=== PATIENT | male | born 1990 | race Caucasian/White ===

== ENCOUNTER 2016-05-21 10:22 | Emergency (ER) | payer BC ==
[2016-05-21 10:29] VITALS: BP 142/88; PULSE 100; RESP 20; TEMP 97.7
[2016-05-21] MEDS ORDERED: cefTRIAXone 1,000 MG VIAL (IM USE) IM STA (10:51)
--- NOTE | 2016-05-21 10:51 | ED ---
ENT HPI - General Chief complaint: Dental/Oral Stated complaint: swollen face/eye Time Seen by Provider: 05/21/16 10:32 Source: patient Mode of arrival: ambulatory Limitations: no limitations - History of Present Illness Initial comments: 25-year-old male onset of toothache for 3 days has a dental appointment on Monday called his tetanus was put on penicillin he notes increased swelling. It is the left upper front tooth. No fever no chills. Pain is not controlled with [id number]. Is nauseated threw up from the pain and taking Motrin. Has a history of asthma there's been control no other health problems. - Related Data Previous Rx's Medication Instructions Recorded Albuterol Inhaler [Ventolin Hfa 1 - 2 puff INHALATION Q4-6H PRN #1 01/14/16 Inhaler] inhaler Azithromycin [Zithromax Z-pack] 0 mg PO DIRECTED #6 tab 01/14/16 Ondansetron Odt [Zofran ODT] 4 mg PO Q8HR PRN #15 tab 01/14/16 predniSONE 60 mg PO DAILY 5 Days 01/14/16 Acetaminophen-Codeine 300-30mg 1 tab PO Q6H PRN #12 tablet 05/21/16 [Tylenol w/codeine #3] Allergies Allergy/AdvReac Type Severity Reaction Status Date / Time No Known Allergies Allergy Verified 05/21/16 10:28 Review of Systems ROS Statement: Those systems with pertinent positive or pertinent negative responses have been documented in the HPI. ROS Other: All systems not noted in ROS Statement are negative. Constitutional: Denies: fever, chills Eyes: Denies: eye discharge ENT: Denies: ear pain, throat pain Respiratory: Denies: cough Cardiovascular: Denies: chest pain Gastrointestinal: Reports: nausea, vomiting. Denies: diarrhea Genitourinary: Denies: frequency Skin: Denies: rash Neurological: Reports: headache Psychiatric: Denies: anxiety Hematological/Lymphatic: Denies: easy bleeding, easy bruising, swollen glands Past Medical History Past Medical History: Asthma Additional Past Medical History / Comment(s): Hypoglycemia, back pain History of Any Multi-Drug Resistant Organisms: None Reported Additional Past Surgical History / Comment(s): cyst removed from dorsum of left hand. Past Psychological History: No Psychological Hx Reported, Bipolar Smoking Status: Current every day smoker Past Alcohol Use History: Occasional Past Drug Use History: Marijuana General Exam Limitations: no limitations General appearance: alert, in no apparent distress Head exam: Present: atraumatic Eye exam: Present: PERRL, EOMI ENT exam: Present: normal oropharynx, mucous membranes moist, other (Marked decay left upper tooth #10, basically a stub it is blackened markedly tender, mild swelling of the face above the tooth.) Respiratory exam: Present: normal lung sounds bilaterally Cardiovascular Exam: Present: regular rate, normal heart sounds Neurological exam: Present: alert, CN II-XII intact Psychiatric exam: Present: normal affect Skin exam: Present: warm, dry Course Vital Signs 05/21/16 10:27 Temperature 97.7 F Pulse Rate 100 Respiratory 20 Rate Blood Pressure 142/88 O2 Sat by Pulse 98 Oximetry Medical Decision Making - Medical Decision Making Patient is given a dental block with 1% Xylocaine plain just above the tooth # 10 tolerated well. We'll send home to continue his Pen-Vee K Tylenol codeine and Zofran follow-up with his dentist Monday to continue his penicillin. Disposition Clinical Impression: Abscessed tooth Disposition: HOME SELF-CARE Condition: Good Instructions: Dental Abscess (ED) Prescriptions: Acetaminophen-Codeine 300-30mg [Tylenol w/codeine #3] 1 tab PO Q6H PRN #12 tablet PRN Reason: Pain Referrals: Jono Jalloh MD [Primary Care Provider] - 1-2 days Time of Disposition: 11:13
== END 2016-05-21 11:38 | disposition home or self-care (01) ==
LOC: EC 10:22
DX: K04.7 Periapical abscess without sinus (principal); F17.200 Nicotine dependence, unspecified, uncomplicated; Z79.899 Other long term (current) drug therapy; J45.909 Unspecified asthma, uncomplicated; Z79.52 Long term (current) use of systemic steroids
CPT/HCPCS: 99283; 96372; 64400; J0696

== ENCOUNTER → 2016-06-14 | Outpatient (CLI) | payer BC ==
--- NOTE | 2016-06-14 13:10 | XR ---
Sacrum and coccyx HISTORY: Pain, trauma 4 views of the sacrum and coccyx Bone mineralization is maintained. No fracture or subluxation. Probable vascular calcification within the pelvis. IMPRESSION: No significant abnormality is evident
== END ==
LOC: RADXRMAIN 09:37
PROVIDERS: ATTEND Internal Medicine
DX: M53.3 Sacrococcygeal disorders, not elsewhere classified (principal)
CPT/HCPCS: 72220

== ENCOUNTER 2016-11-10 16:14 | Emergency (ER) | payer BC ==
[2016-11-10] MEDS ORDERED: METOCLOPRAMIDE 5 MG/ML 2 ML VIAL IVP STA (16:38)
[2016-11-10] MEDS ORDERED: SODIUM CHLORIDE 0.9% 1,000 ML IV ONE (16:38)
[2016-11-10] MEDS ORDERED: KETOROLAC 30 MG/ML 1 ML VIAL IVP STA (16:38)
[2016-11-10] MEDS ORDERED: diphenhydrAMINE 50 MG/ML 1 ML VIAL IVP STA (16:38)
--- NOTE | 2016-11-10 16:44 | ED ---
General Adult HPI - General Chief complaint: Anxiety Stated complaint: Shaky/Headache Source: patient Mode of arrival: ambulatory Limitations: no limitations - History of Present Illness Initial comments: Patient is a 26-year-old male who presents for evaluation for headache, shakiness, nausea, vomiting. Past medical history as below. Patient has a known history of migraines and anxiety. He cites a lot of stressors at work. Does not take any home medications. For the last 24 hours he has had a migraine -like headache which is similar to his previous headaches. He also states that he feels very shaky and unsteady when he walks. Associated nausea and vomiting. States that he feels anxious. Denies any suicidal or homicidal ideation. He states that he smokes marijuana and has been smoking the same type of marijuana from the same distributor. No IV drug use. No fevers. He states that he has broken out on his face. Feels dry. Denies any changes in vision. No slurred speech. Denies any shortness of breath cough or chest pain. No real abdominal pain. A few episodes of diarrhea. No pain or burning with urination. Never had anything quite like this before in the past. No head trauma. Does not take any medications for depression or any other SSRI medications. No heavy alcohol abuse. - Related Data Previous Rx's Medication Instructions Recorded Albuterol Inhaler [Ventolin Hfa 1 - 2 puff INHALATION Q4-6H PRN #1 01/14/16 Inhaler] inhaler Azithromycin [Zithromax Z-pack] 0 mg PO DIRECTED #6 tab 01/14/16 Ondansetron Odt [Zofran ODT] 4 mg PO Q8HR PRN #15 tab 01/14/16 predniSONE 60 mg PO DAILY 5 Days 01/14/16 Acetaminophen-Codeine 300-30mg 1 tab PO Q6H PRN #12 tablet 05/21/16 [Tylenol w/codeine #3] Allergies Allergy/AdvReac Type Severity Reaction Status Date / Time No Known Allergies Allergy Verified 11/10/16 16:19 Review of Systems ROS Statement: Those systems with pertinent positive or pertinent negative responses have been documented in the HPI. ROS Other: All systems not noted in ROS Statement are negative. Past Medical History Past Medical History: Asthma Additional Past Medical History / Comment(s): Hypoglycemia, back pain History of Any Multi-Drug Resistant Organisms: None Reported Additional Past Surgical History / Comment(s): cyst removed from dorsum of left hand. Past Psychological History: No Psychological Hx Reported, Bipolar Smoking Status: Current every day smoker Past Alcohol Use History: Occasional Past Drug Use History: Marijuana General Exam Limitations: no limitations General appearance: alert, in no apparent distress, anxious, other (Sitting upright in the stretcher. Appears somewhat anxious.) Head exam: Present: atraumatic, normocephalic, normal inspection Eye exam: Present: normal appearance, PERRL, EOMI. Absent: scleral icterus, conjunctival injection, nystagmus, periorbital swelling ENT exam: Present: normal exam, mucous membranes moist, other (Xeroderma to his cheeks bilaterally.) Neck exam: Present: normal inspection, full ROM. Absent: tenderness, meningismus, lymphadenopathy Respiratory exam: Present: normal lung sounds bilaterally. Absent: respiratory distress, wheezes, rales, rhonchi, stridor Cardiovascular Exam: Present: regular rate, normal rhythm, normal heart sounds. Absent: systolic murmur, diastolic murmur, rubs, gallop, clicks GI/Abdominal exam: Present: soft, normal bowel sounds, other (Abdomen is soft. No specific points of tenderness. States that it is somewhat uncomfortable when I palpate the epigastric area.). Absent: distended, tenderness, guarding, rebound, rigid Extremities exam: Present: normal inspection, full ROM, normal capillary refill. Absent: tenderness, pedal edema, joint swelling, calf tenderness Back exam: Present: normal inspection Neurological exam: Present: alert, oriented X3, CN II-XII intact, other ( Cranial nerves II through XII grossly intact without focal neurological deficits. Alert and oriented 3. Answers questions appropriately. 5 out of 5 strength of the upper or lower extremities. Gait is at baseline. Questionable ataxia of the upper extremity is bilaterally. Uncertain to elucidate as patient is somewhat shaky. Otherwise no lateralizing neurological deficits.) Psychiatric exam: Present: normal affect, normal mood Skin exam: Present: warm, dry, intact, normal color. Absent: rash Course Vital Signs 11/10/16 16:16 Temperature 97.8 F Pulse Rate 85 Respiratory 20 Rate Blood Pressure 143/77 O2 Sat by Pulse 98 Oximetry Medical Decision Making - Medical Decision Making 1645: Patient is a 26-year-old male present for evaluation for migraine-like headache, nausea, vomiting, shakiness, anxiety. Never had symptoms like this before in the past. His migraine is similar to previous. Somewhat ataxic on exam. Difficult to elucidate though as the patient is somewhat shaky. Uncertain etiology at this time. He cites a lot of emotional stressors at home. Smokes marijuana regularly. We'll order a saline bolus, Reglan, Benadryl , Toradol for the migraine headache. We'll also order basic labs with magnesium , urinalysis, CT head with a questionable neurological findings. 175: Reevaluated the patient. His laboratory studies are within normal limits. CT head revealed no acute process. He states that he feels much more relaxed. Shakiness has resolved. His headache is nearly resolved. He is comfortable going home and following up with his primary care physician. Discussed specific signs and symptoms on when to return to the emergency department for further evaluation. He is comfortable with discharge home and will follow-up with his PCP tomorrow. - Lab Data Result diagrams: 11/10/16 16:50 11/10/16 16:50 Lab Results 11/10/16 11/10/16 11/10/16 Range/Units 16:50 16:50 17:16 WBC 4.8 (3.8-10.6) k/uL RBC 5.04 (4.30-5.90) m/uL Hgb 15.9 (13.0-17.5) gm/dL Hct 44.7 (39.0-53.0) % MCV 88.8 (80.0-100.0) fL MCH 31.7 (25.0-35.0) pg MCHC 35.6 (31.0-37.0) g/dL RDW 12.9 (11.5-15.5) % Plt Count 291 (150-450) k/uL Neutrophils % 63 % Lymphocytes % 24 % Monocytes % 7 % Eosinophils % 3 % Basophils % 1 % Neutrophils # 3.0 (1.3-7.7) k/uL Lymphocytes # 1.2 (1.0-4.8) k/uL Monocytes # 0.3 (0-1.0) k/uL Eosinophils # 0.2 (0-0.7) k/uL Basophils # 0.1 (0-0.2) k/uL Sodium 140 (137-145) mmol/L Potassium 4.4 (3.5-5.1) mmol/L Chloride 105 (98-107) mmol/L Carbon Dioxide 24 (22-30) mmol/L Anion Gap 11 mmol/L BUN 12 (9-20) mg/dL Creatinine 0.82 (0.66-1.25) mg/dL Est GFR (MDRD) Af Amer >60 (>60 ml/min/1.73 sqM) Est GFR (MDRD) Non-Af >60 (>60 ml/min/1.73 sqM) Glucose 101 H (74-99) mg/dL Calcium 9.7 (8.4-10.2) mg/dL Magnesium 2.0 (1.6-2.3) mg/dL Total Bilirubin 0.7 (0.2-1.3) mg/dL AST 23 (17-59) U/L ALT 36 (21-72) U/L Alkaline Phosphatase 50 (38-126) U/L Total Protein 7.4 (6.3-8.2) g/dL Albumin 4.8 (3.5-5.0) g/dL Urine Color Yellow Urine Appearance Clear (Clear) Urine pH 7.5 (5.0-8.0) Ur Specific [place] 1.009 (1.001-1.035) Urine Protein Negative (Negative) Urine Glucose (UA) Negative (Negative) Urine Ketones Negative (Negative) Urine Blood Negative (Negative) Urine Nitrite Negative (Negative) Urine Bilirubin Negative (Negative) Urine Urobilinogen <2.0 (<2.0) mg/dL Ur Leukocyte Esterase Negative (Negative) Disposition Clinical Impression: Migraine, Nausea & vomiting Disposition: HOME SELF-CARE Condition: Good Instructions: Migraine Headache (ED) Referrals: Jono Jalloh MD [Primary Care Provider] - 1-2 days
[2016-11-10 17:04] LABS: Basophils # (A) 0.1 k/uL (0-0.2); Basophils % (A) 1 %; CH 31.5; CHCM 35.6; Eosinophils # (A) 0.2 k/uL (0-0.7); Eosinophils % (A) 3 %; HCT 44.7 % (39.0-53.0); HDW 2.38; HGB 15.9 gm/dL (13.0-17.5); Luc % (Auto) 2; Lymphocytes # (A) 1.2 k/uL (1.0-4.8); Lymphocytes % (A) 24 %; MCH 31.7 pg (25.0-35.0); MCHC 35.6 g/dL (31.0-37.0); MCV 88.8 fL (80.0-100.0); Mean Platelet Volume 6.7; Monocytes # (A) 0.3 k/uL (0-1.0); Monocytes % (A) 7 %; Neutrophils % (A) 63 %; RBC 5.04 m/uL (4.30-5.90); RDW 12.9 % (11.5-15.5); WBC 4.8 k/uL (3.8-10.6); WBC (Perox) 5.05
[2016-11-10 17:12] LABS: ALT 36 U/L (21-72); AST 23 U/L (17-59); Alkaline Phosphatase 50 U/L (38-126); Anion Gap 11 mmol/L; Blood Urea Nitrogen 12 mg/dL (9-20); Calcium 9.7 mg/dL (8.4-10.2); Carbon Dioxide 24 mmol/L (22-30); Chloride 105 mmol/L (98-107); Glucose 101 mg/dL (74-99); Non-African American GFR(MDRD) >60 (>60 ml/min/1.73 sqM); Potassium 4.4 mmol/L (3.5-5.1); Sodium 140 mmol/L (137-145); Total Bilirubin 0.7 mg/dL (0.2-1.3); Total Protein 7.4 g/dL (6.3-8.2)
[2016-11-10 17:20] LABS: Appearance,Urine Clear (Clear); Bilirubin,Urine Negative (Negative); Glucose,Urine (UA) Negative (Negative); Ketones,Urine Negative (Negative); Leukocyte Esterase,Urine Negative (Negative); Nitrite,Urine Negative (Negative); PH, Urine 7.5 (5.0-8.0); Protein,Urine Negative (Negative); Specific Gravity,Urine 1.009 (1.001-1.035); UA Billing (MACRO vs. MICRO) CHEM; Urobilinogen,Urine <2.0 mg/dL (<2.0)
--- NOTE | 2016-11-10 17:41 | CT ---
EXAMINATION TYPE: CT brain wo con DATE OF EXAM: 11/10/2016 COMPARISON: NONE HISTORY: MIGRANE AND BODY SHAKES. CT DLP: 943.8 mGycm. Automated Exposure Control for Dose Reduction was Utilized. TECHNIQUE: CT scan of the head is performed without contrast. FINDINGS: Ventricles and sulci appear normal. There is no mass effect nor midline shift. There is no sign of intracranial hemorrhage. There is no sign of cerebral edema. The calvarium appears intact.. IMPRESSION: Normal CT scan of the brain..
[2016-11-10 18:00] VITALS: BP 113/63; PULSE 56; RESP 18; TEMP 97.7
== END 2016-11-10 18:02 | disposition home or self-care (01) ==
LOC: EC 16:14
DX: G43.909 Migraine, unspecified, not intractable, without status migrainosus (principal); R11.2 Nausea with vomiting, unspecified; F17.200 Nicotine dependence, unspecified, uncomplicated
CPT/HCPCS: 99284; 96374; 96375 ×2; 96361; 36415; 80053; 83735; 85025; 81003; 70450; J1200; J2765; J1885

== ENCOUNTER 2018-10-08 13:59 | Emergency (ER) | payer BC ==
[2018-10-08 14:11] VITALS: BP 123/79; PULSE 90; RESP 18; TEMP 98.3
[2018-10-08 15:07] LABS: HCT 42.9 % (39.0-53.0); HGB 14.5 gm/dL (13.0-17.5); MCH 30.1 pg (25.0-35.0); MCHC 33.8 g/dL (31.0-37.0); MCV 89.1 fL (80.0-100.0); Mean Platelet Volume 7.2; Platelet Count 265 k/uL (150-450); RBC 4.82 m/uL (4.30-5.90); WBC 5.6 k/uL (3.8-10.6)
--- NOTE | 2018-10-08 15:07 | ED ---
General Adult HPI - General Chief complaint: Recheck/Abnormal Lab/Rx Stated complaint: Side effects from medication Time Seen by Provider: 10/08/18 14:17 Source: patient Mode of arrival: ambulatory Limitations: no limitations - History of Present Illness Initial comments: Patient is a 28-year-old male presenting to emergency Department with medication side effects. Patient reports taking Effexor for approximately 9 months that was prescribed to him by Dr. Harmon. Patient reports that he does not "feel the same"over the past few days. Patient reports suddenly crying then feeling happy. Patient reports today he felt shortness of breath and chest tightness especially over the right side of the chest. Patient reports the bilateral temporal headaches but he gets those often. Patient reports taking Tylenol with minimal improvement. Patient denies nausea, vomiting, diarrhea. Patient denies fever, night sweats or chills. Patient is a smoker. 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 Patient states that he currently feels "normal." - Related Data Home Medications Medication Instructions Recorded Confirmed Venlafaxine HCl ER [Effexor Xr] 37.5 mg PO DAILY 10/08/18 10/08/18 Allergies Allergy/AdvReac Type Severity Reaction Status Date / Time No Known Allergies Allergy Verified 10/08/18 14:29 Review of Systems ROS Statement: Those systems with pertinent positive or pertinent negative responses have been documented in the HPI. ROS Other: All systems not noted in ROS Statement are negative. Past Medical History Past Medical History: Asthma Additional Past Medical History / Comment(s): Hypoglycemia, back pain History of Any Multi-Drug Resistant Organisms: None Reported Additional Past Surgical History / Comment(s): cyst removed from dorsum of left hand. Past Psychological History: Anxiety, Bipolar, Depression Smoking Status: Former smoker Past Alcohol Use History: None Reported Past Drug Use History: Marijuana General Exam Limitations: no limitations General appearance: alert, in no apparent distress Head exam: Present: atraumatic, normocephalic, normal inspection Eye exam: Present: normal appearance, PERRL, EOMI Pupils: Present: normal accommodation ENT exam: Present: normal exam Neck exam: Present: normal inspection, full ROM Respiratory exam: Present: normal lung sounds bilaterally Cardiovascular Exam: Present: regular rate, normal rhythm, normal heart sounds GI/Abdominal exam: Present: soft Extremities exam: Present: normal inspection, full ROM Back exam: Present: normal inspection, full ROM Neurological exam: Present: alert, oriented X3 Psychiatric exam: Present: normal affect, normal mood Skin exam: Present: warm, intact, normal color Course Vital Signs 10/08/18 14:07 Temperature 98.3 F Pulse Rate 90 Respiratory 18 Rate Blood Pressure 123/79 O2 Sat by Pulse 98 Oximetry EKG Findings - EKG Comments: EKG Findings:: Sinus bradycardia. Ventricular rate 44. NC interval 198. QRS duration 90. QT/QTc 406/347. P-R-T axes 37 64 37 Medical Decision Making - Medical Decision Making Patient is a 28-year-old male presents emergency Department with drug side effects. Based on history and physical examination I suspect the patient to have developed a panic attack earlier today. CBC and CMP were unremarkable. Chest x-ray is is negative for acute cardiopulmonary pathologies. EKG is indicative of bradycardia with sinus rhythm. On reevaluation patient reports that he feels much better and is more calm. Patient advised to follow-up with psychiatry to discuss the possible side effects of the antidepressant is taking. Strict return parameters were thoroughly discussed with patient who is understanding and agreeable. Case discussed with physician. - Lab Data Result diagrams: 10/08/18 14:55 10/08/18 14:55 Lab Results 10/08/18 10/08/18 Range/Units 14:55 14:55 WBC 5.6 (3.8-10.6) k/uL RBC 4.82 (4.30-5.90) m/uL Hgb 14.5 (13.0-17.5) gm/dL Hct 42.9 (39.0-53.0) % MCV 89.1 (80.0-100.0) fL MCH 30.1 (25.0-35.0) pg MCHC 33.8 (31.0-37.0) g/dL RDW 14.0 (11.5-15.5) % Plt Count 265 (150-450) k/uL Sodium 139 (137-145) mmol/L Potassium 5.0 (3.5-5.1) mmol/L Chloride 105 (98-107) mmol/L Carbon Dioxide 27 (22-30) mmol/L Anion Gap 7 mmol/L BUN 16 (9-20) mg/dL Creatinine 0.73 (0.66-1.25) mg/dL Est GFR (CKD-EPI)AfAm >90 (>60 ml/min/1.73 sqM) Est GFR (CKD-EPI)NonAf >90 (>60 ml/min/1.73 sqM) Glucose 90 (74-99) mg/dL Calcium 9.7 (8.4-10.2) mg/dL Total Bilirubin 0.6 (0.2-1.3) mg/dL AST 20 (17-59) U/L ALT 16 L (21-72) U/L Alkaline Phosphatase 48 (38-126) U/L Total Protein 7.0 (6.3-8.2) g/dL Albumin 4.6 (3.5-5.0) g/dL Disposition Clinical Impression: Drug side effects Disposition: HOME SELF-CARE Condition: Stable Instructions (If sedation given, give patient instructions): Anxiety (ED), Panic Attack (ED) Additional Instructions: Please follow-up with a psychiatrist. Please continue taking the prescribed medication as directed. Please return to emergency department if symptoms wor sen. Is patient prescribed a controlled substance at d/c from ED?: No Referrals: Edwardo Harmon MD [Primary Care Provider] - 1-2 days Time of Disposition: 15:56
[2018-10-08 15:15] LABS: ALT 16 U/L (21-72); AST 20 U/L (17-59); African American GFR (CKD) >90 (>60 ml/min/1.73 sqM); Albumin 4.6 g/dL (3.5-5.0); Alkaline Phosphatase 48 U/L (38-126); Anion Gap 7 mmol/L; Blood Urea Nitrogen 16 mg/dL (9-20); Calcium 9.7 mg/dL (8.4-10.2); Carbon Dioxide 27 mmol/L (22-30); Chloride 105 mmol/L (98-107); Glucose 90 mg/dL (74-99); Sodium 139 mmol/L (137-145); Total Bilirubin 0.6 mg/dL (0.2-1.3)
--- NOTE | 2018-10-08 15:16 | XR ---
EXAMINATION TYPE: XR chest 2V DATE OF EXAM: 10/08/2018 COMPARISON: 01/14/2016 INDICATION: Cough pain TECHNIQUE: Frontal and lateral views of the chest are obtained. FINDINGS: The heart size is normal. The pulmonary vasculature is normal. The lungs are clear. IMPRESSION: 1. No acute pulmonary process.
== END 2018-10-08 16:29 | disposition home or self-care (01) ==
LOC: EC 13:59
DX: R06.02 Shortness of breath (principal); T43.215A Adverse effect of selective serotonin and norepinephrine reuptake inhibitors, initial encounter; R07.89 Other chest pain; R51 Headache; R00.1 Bradycardia, unspecified; F41.9 Anxiety disorder, unspecified; F32.9 Major depressive disorder, single episode, unspecified; Z87.09 Personal history of other diseases of the respiratory system; Z79.899 Other long term (current) drug therapy; Z87.891 Personal history of nicotine dependence
CPT/HCPCS: 36415; 71046; 80053; 85027; 93005; 99284

== ENCOUNTER 2019-10-03 19:06 | Emergency (ER) | payer BC ==
[2019-10-03] MEDS ORDERED: SODIUM CHLORIDE 0.9% 1,000 ML IV ONE (19:44)
[2019-10-03 20:06] LABS: Basophils # (A) 0.1 k/uL (0-0.2); Basophils % (A) 1 %; Eosinophils # (A) 0.1 k/uL (0-0.7); Eosinophils % (A) 2 %; HCT 44.4 % (39.0-53.0); HGB 14.7 gm/dL (13.0-17.5); Lymphocytes # (A) 1.4 k/uL (1.0-4.8); Lymphocytes % (A) 21 %; MCH 29.9 pg (25.0-35.0); MCHC 33.1 g/dL (31.0-37.0); MCV 90.4 fL (80.0-100.0); Monocytes # (A) 0.4 k/uL (0-1.0); Monocytes % (A) 6 %; Neutrophils # (A) 4.7 k/uL (1.3-7.7); Neutrophils % (A) 70 %; Platelet Count 301 k/uL (150-450); RBC 4.92 m/uL (4.30-5.90); RDW 12.9 % (11.5-15.5); WBC 6.8 k/uL (3.8-10.6)
[2019-10-03 20:27] LABS: ALT 16 U/L (4-49); AST 22 U/L (17-59); African American GFR (CKD) >90 (>60 ml/min/1.73 sqM); Albumin 4.9 g/dL (3.5-5.0); Alkaline Phosphatase 49 U/L (38-126); Anion Gap 9 mmol/L; Blood Urea Nitrogen 15 mg/dL (9-20); Calcium 9.9 mg/dL (8.4-10.2); Carbon Dioxide 23 mmol/L (22-30); Chloride 103 mmol/L (98-107); Glucose 91 mg/dL (74-99); Non-African American GFR(CKD) >90 (>60 ml/min/1.73 sqM); Sodium 135 mmol/L (137-145); Total Bilirubin 0.8 mg/dL (0.2-1.3); Total Protein 7.3 g/dL (6.3-8.2)
--- NOTE | 2019-10-03 20:40 | ED ---
General Adult HPI - General Chief complaint: Dizziness Stated complaint: Heat exhaustion Time Seen by Provider: 10/03/19 19:42 Source: patient, RN notes reviewed Mode of arrival: ambulatory Limitations: no limitations - History of Present Illness Initial comments: 28-year-old male with a past medical history of asthma, hypoglycemia presents to the emergency department for a chief complaint of lightheadedness. 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 Patient states today when he woke up he felt very dehydrated. 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 Patient states he started to feel lightheaded and his fingers and Hans[place] a cramping and feeling tingly. Patient states he felt like he was going to pass out. 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 Patient does report that he has been trying to drink water. Patient did not lose consciousness. Patient has no other complaints at this time including shortness of breath, chest pain, abdominal pain, nausea or vomiting, headache, or visual changes. - Related Data Home Medications Medication Instructions Recorded Confirmed Venlafaxine HCl ER [Effexor Xr] 37.5 mg PO DAILY 10/08/18 10/08/18 Allergies Allergy/AdvReac Type Severity Reaction Status Date / Time No Known Allergies Allergy Verified 10/03/19 19:21 Review of Systems ROS Statement: Those systems with pertinent positive or pertinent negative responses have been documented in the HPI. ROS Other: All systems not noted in ROS Statement are negative. Past Medical History Past Medical History: Asthma Additional Past Medical History / Comment(s): Hypoglycemia, back pain History of Any Multi-Drug Resistant Organisms: None Reported Additional Past Surgical History / Comment(s): cyst removed from dorsum of left hand. Past Psychological History: Anxiety, Bipolar, Depression Smoking Status: Former smoker Past Alcohol Use History: None Reported Past Drug Use History: Marijuana General Exam Limitations: no limitations General appearance: alert, in no apparent distress Head exam: Present: atraumatic, normocephalic, normal inspection Eye exam: Present: normal appearance, PERRL, EOMI. Absent: scleral icterus, conjunctival injection ENT exam: Present: normal exam, mucous membranes moist Neck exam: Present: normal inspection, full ROM. Absent: tenderness, meningismus, lymphadenopathy Respiratory exam: Present: normal lung sounds bilaterally. Absent: respiratory distress, wheezes, rales, rhonchi, stridor Cardiovascular Exam: Present: regular rate, normal rhythm, normal heart sounds. Absent: systolic murmur, diastolic murmur, rubs, gallop, clicks GI/Abdominal exam: Present: soft, normal bowel sounds. Absent: distended, t enderness, guarding, rebound, rigid Neurological exam: Present: alert, oriented X3, normal gait, other (GCS 15) Course Vital Signs 10/03/19 10/03/19 19:18 20:35 Temperature 98.7 F 98.5 F Pulse Rate 58 L 60 Respiratory 18 18 Rate Blood Pressure 123/81 130/83 O2 Sat by Pulse 97 100 Oximetry Medical Decision Making - Medical Decision Making Vitals are stable. CBC CMP are unremarkable. Patient was given fluids and had significant improvement in symptoms. Patient will be given the next day off work to drink any of fluids including Gatorade. Discussed returning here should he have any worsening symptoms. He will otherwise follow up with primary care. - Lab Data Result diagrams: 10/03/19 19:57 10/03/19 19:57 Lab Results 10/03/19 10/03/19 Range/Units 19:57 19:57 WBC 6.8 (3.8-10.6) k/uL RBC 4.92 (4.30-5.90) m/uL Hgb 14.7 (13.0-17.5) gm/dL Hct 44.4 (39.0-53.0) % MCV 90.4 (80.0-100.0) fL MCH 29.9 (25.0-35.0) pg MCHC 33.1 (31.0-37.0) g/dL RDW 12.9 (11.5-15.5) % Plt Count 301 (150-450) k/uL Neutrophils % 70 % Lymphocytes % 21 % Monocytes % 6 % Eosinophils % 2 % Basophils % 1 % Neutrophils # 4.7 (1.3-7.7) k/uL Lymphocytes # 1.4 (1.0-4.8) k/uL Monocytes # 0.4 (0-1.0) k/uL Eosinophils # 0.1 (0-0.7) k/uL Basophils # 0.1 (0-0.2) k/uL Sodium 135 L (137-145) mmol/L Potassium 4.0 (3.5-5.1) mmol/L Chloride 103 (98-107) mmol/L Carbon Dioxide 23 (22-30) mmol/L Anion Gap 9 mmol/L BUN 15 (9-20) mg/dL Creatinine 0.72 (0.66-1.25) mg/dL Est GFR (CKD-EPI)AfAm >90 (>60 ml/min/1.73 sqM) Est GFR (CKD-EPI)NonAf >90 (>60 ml/min/1.73 sqM) Glucose 91 (74-99) mg/dL Calcium 9.9 (8.4-10.2) mg/dL Total Bilirubin 0.8 (0.2-1.3) mg/dL AST 22 (17-59) U/L ALT 16 (4-49) U/L Alkaline Phosphatase 49 (38-126) U/L Total Protein 7.3 (6.3-8.2) g/dL Albumin 4.9 (3.5-5.0) g/dL Disposition Clinical Impression: Near syncope Disposition: HOME SELF-CARE Condition: Good Instructions (If sedation given, give patient instructions): Near Syncope (ED) Additional Instructions: Please drink plenty of fluids with electrolytes such as Gatorade. Please rest over the next day. Follow-up with primary care for a recheck. Return here to the emergency room should you have any worsening symptoms. Is patient prescribed a controlled substance at d/c from ED?: No Referrals: Edwardo Harmon MD [Primary Care Provider] - 1-2 days Time of Disposition: 20:39
[2019-10-04 10:25] VITALS: BP 130/83; PULSE 60; RESP 18; TEMP 98.5
== END 2019-10-03 20:45 | disposition home or self-care (01) ==
LOC: EC 19:06
DX: R55 Syncope and collapse (principal); R42 Dizziness and giddiness; F41.9 Anxiety disorder, unspecified; F31.9 Bipolar disorder, unspecified; Z79.899 Other long term (current) drug therapy; Z87.891 Personal history of nicotine dependence
CPT/HCPCS: 36415; 80053; 85025; 93005; 96360; 99284

== ENCOUNTER → 2019-10-18 | Outpatient (CLI) | payer BC | END | disposition home or self-care (01) | LOC: LABWHC1 08:46 | PROVIDERS: ATTEND Family Medicine | DX: J02.9 Acute pharyngitis, unspecified (principal); Z11.59 Encounter for screening for other viral diseases | CPT/HCPCS: U0003; C9803 ==

== ENCOUNTER → 2019-11-05 | Outpatient (CLI) | payer BC ==
--- NOTE | 2019-11-05 19:00 | ECHOF ---
Referral Reason:I51.7 Cardiomegaly MEASUREMENTS -------- HEIGHT: 165.1 cm WEIGHT: 74.8 kg BP: RVIDd: 3.4 cm (< 3.3) IVSd: 0.9 cm (0.6 - 1.1) LVIDd: 5.4 cm (3.9 - 5.3) LVPWd: 1.0 cm (0.6 - 1.1) IVSs: 1.5 cm LVIDs: 3.7 cm LVPWs: 1.6 cm LA Diam: 3.6 cm (2.7 - 3.8) LAESV Index (A-L): 23.43 ml/m Ao Diam: 3.7 cm (2.0 - 3.7) AV Cusp: 2.6 cm (1.5 - 2.6) MV EXCURSION: 28.850 mm (> 18.000) MV EF SLOPE: 211 mm/s (70 - 150) EPSS: 0.5 cm MV E Kayden: 0.69 m/s MV DecT: 140 ms MV A Kayden: 0.46 m/s MV E/A Ratio: 1.49 AR PHT: 1414 ms FINDINGS -------- Sinus rhythm. This was a technically good study. The left ventricular size is normal. Left ventricular wall thickness is normal. Overall left vent ricular systolic function is low-normal with, an EF between 50 - 55 %. The right ventricle is mildly enlarged. Normal LA size by volume 22+/-6 ml/m2. The right atrium is normal in size. Aneurysmal Interatrial septum. The aortic valve is trileaflet and appears structurally normal. Trace to mild aortic regurgitation. The mitral valve is normal. The tricuspid valve appears structurally normal. Trace/mild (physiologic) pulmonic regurgitation. The aortic root size is normal. Normal inferior vena cava with normal inspiratory collapse consistent with estimated right atrial pre ssure of 5 mmHg. There is no pericardial effusion. CONCLUSIONS -------- 1. The left ventricular size is normal. 2. Left ventricular wall thickness is normal. 3. Overall left ventricular systolic function is low-normal with, an EF between 50 - 55 %. 4. The right ventricle is mildly enlarged. 5. The aortic valve is trileaflet and appears structurally normal. 6. Trace to mild aortic regurgitation. 7. Trace/mild (physiologic) pulmonic regurgitation. [employer] PREPARER: Steffanie Capellan RDCS
== END | disposition home or self-care (01) ==
LOC: RADECHMAIN 13:49
PROVIDERS: ATTEND Family Medicine
DX: I06.1 Rheumatic aortic insufficiency (principal)
CPT/HCPCS: 93306

== ENCOUNTER 2019-11-06 13:51 | Emergency (ER) | payer BC ==
[2019-11-06] MEDS ORDERED: MAG HYDROX/AL HYDROX/SIMETH 30 ML, HYOSCYAMINE ELIXIR 10 ML PO STA ×2 (14:19)
[2019-11-06] MEDS ORDERED: SODIUM CHLORIDE 0.9% 500 ML 500 ML IV STA (14:19)
--- NOTE | 2019-11-06 14:22 | ED ---
Chest Pain HPI - General Chief Complaint: Chest Pain Stated Complaint: chest pain Time Seen by Provider: 11/06/19 14:00 Source: patient, RN notes reviewed Mode of arrival: ambulatory Limitations: no limitations - History of Present Illness Initial Comments: This a 29-year-old male presents emergency Department chief complaint of chest pain. Patient states he has had symptoms for last 1 week. Patient did see PCP had an echocardiogram yesterday which was essentially within normal limits. Patient states that symptoms are becoming more constant and has sternal region. Patient states he has some pain towards his left shoulder which feels achy in nature. He has met he feels short of breath and he rates daily. Patient denies any prior cardiac disease denies any hyperlipidemia, diabetes, hypertension. Patient does have some epigastric summer, nausea. Patient denies any melanotic used to. Patient denies any hematemesis or coffee-ground emesis. - Related Data Home Medications Medication Instructions Recorded Confirmed DULoxetine HCL [Cymbalta] 30 mg PO BID 11/06/19 11/06/19 Ibuprofen [Motrin Ib] 400 mg PO Q8H PRN 11/06/19 11/06/19 Allergies Allergy/AdvReac Type Severity Reaction Status Date / Time No Known Allergies Allergy Verified 11/06/19 15:03 Review of Systems ROS Statement: Those systems with pertinent positive or pertinent negative responses have been documented in the HPI. ROS Other: All systems not noted in ROS Statement are negative. EKG Findings - EKG Comments: EKG Findings:: EKG 414:090/with a rate of 60. When he 2 QRS 92 QT /QTC 366/366 Past Medical History Past Medical History: Asthma Additional Past Medical History / Comment(s): Hypoglycemia, back pain, enlarged heart History of Any Multi-Drug Resistant Organisms: None Reported Additional Past Surgical History / Comment(s): cyst removed from dorsum of left hand. Past Psychological History: Anxiety, Bipolar, Depression Smoking Status: Vaper Past Alcohol Use History: None Reported Past Drug Use History: Marijuana General Exam Limitations: no limitations General appearance: alert, in no apparent distress Head exam: Present: atraumatic, normocephalic, normal inspection Eye exam: Present: normal appearance, PERRL, EOMI. Absent: scleral icterus, conjunctival injection, periorbital swelling ENT exam: Present: normal exam, normal oropharynx, mucous membranes moist Neck exam: Present: normal inspection, full ROM. Absent: tenderness, meningismus, lymphadenopathy Respiratory exam: Present: normal lung sounds bilaterally, chest wall tenderness (Tenderness along the sternum). Absent: respiratory distress, wheezes, rales, rhonchi, stridor Cardiovascular Exam: Present: regular rate, normal rhythm, normal heart sounds. Absent: systolic murmur, diastolic murmur, rubs, gallop, clicks GI/Abdominal exam: Present: soft, normal bowel sounds. Absent: distended, tenderness (Mild epigastric), guarding, rebound, rigid Back exam: Absent: CVA tenderness (R), CVA tenderness (L) Neurological exam: Present: alert, oriented X3 Skin exam: Present: warm, dry, intact, normal color. Absent: rash Course Vital Signs 11/06/19 11/06/19 13:56 14:50 Temperature 98.3 F Pulse Rate 68 58 L Respiratory 16 17 Rate Blood Pressure 135/79 120/79 O2 Sat by Pulse 99 98 Oximetry Chest Pain MDM - MDM Patient's labs, EKG and chest x-ray and echo were reviewed there are no significant findings. Patient's symptoms are reproducible and may be more consistent with costochondritis. Patient will be discharged in stable condition with close follow-up return parameters were discussed. Disposition Clinical Impression: Chest wall pain Disposition: HOME SELF-CARE Condition: Stable Instructions (If sedation given, give patient instructions): Chest Pain (ED) Additional Instructions: Please return to the Emergency Department if symptoms worsen or any other concerns. Is patient prescribed a controlled substance at d/c from ED?: No Referrals: Edwardo Harmon MD [Primary Care Provider] - 1-2 days Time of Disposition: 15:40
[2019-11-06 14:44] LABS: Basophils # (A) 0.1 k/uL (0-0.2); Basophils % (A) 1 %; Eosinophils # (A) 0.4 k/uL (0-0.7); Eosinophils % (A) 7 %; HCT 44.4 % (39.0-53.0); HGB 14.7 gm/dL (13.0-17.5); Lymphocytes # (A) 1.8 k/uL (1.0-4.8); Lymphocytes % (A) 35 %; MCH 29.9 pg (25.0-35.0); MCHC 33.2 g/dL (31.0-37.0); MCV 90.1 fL (80.0-100.0); Mean Platelet Volume 7.1; Monocytes # (A) 0.3 k/uL (0-1.0); Monocytes % (A) 5 %; Neutrophils # (A) 2.6 k/uL (1.3-7.7); Neutrophils % (A) 49 %; Platelet Count 286 k/uL (150-450); RBC 4.93 m/uL (4.30-5.90); RDW 12.6 % (11.5-15.5); WBC 5.2 k/uL (3.8-10.6)
--- NOTE | 2019-11-06 14:47 | XR ---
EXAMINATION TYPE: XR chest 2V DATE OF EXAM: 11/06/2019 COMPARISON: Prior chest x-ray 10/08/2018 HISTORY: Chest pain TECHNIQUE: Frontal and lateral views of the chest are obtained. FINDINGS: There is no focal air space opacity, pleural effusion, or pneumothorax seen. The cardiac silhouette size is within normal limits. The osseous structures are intact. IMPRESSION: No acute cardiopulmonary process.
[2019-11-06 14:52] LABS: ALT 17 U/L (4-49); AST 24 U/L (17-59); African American GFR (CKD) >90 (>60 ml/min/1.73 sqM); Albumin 4.9 g/dL (3.5-5.0); Alkaline Phosphatase 51 U/L (38-126); Anion Gap 9 mmol/L; Blood Urea Nitrogen 16 mg/dL (9-20); Calcium 9.9 mg/dL (8.4-10.2); Carbon Dioxide 23 mmol/L (22-30); Chloride 104 mmol/L (98-107); Glucose 102 mg/dL (74-99); Magnesium 2.1 mg/dL (1.6-2.3); Non-African American GFR(CKD) >90 (>60 ml/min/1.73 sqM); Potassium 4.2 mmol/L (3.5-5.1); Sodium 136 mmol/L (137-145); Total Bilirubin 0.6 mg/dL (0.2-1.3); Total Protein 7.2 g/dL (6.3-8.2)
[2019-11-06 15:08] LABS: D-Dimer <0.17 mg/L FEU (<0.60); Prothrombin Time 10.4 sec (9.0-12.0)
[2019-11-06 16:13] VITALS: BP 117/69; PULSE 53; RESP 18; TEMP 97.8
== END 2019-11-06 16:13 | disposition home or self-care (01) ==
LOC: EC 13:51
DX: R07.89 Other chest pain (principal); M25.512 Pain in left shoulder; R11.0 Nausea; F41.9 Anxiety disorder, unspecified; F31.9 Bipolar disorder, unspecified; Z79.899 Other long term (current) drug therapy
CPT/HCPCS: 36415; 71046; 80053; 83690; 83735; 84484; 85025; 85379; 85610; 85730; 93005; 96360; 99285

== ENCOUNTER 2019-11-27 15:38 | Emergency (ER) | payer BC ==
[2019-11-27 16:01] VITALS: RESP 18
[2019-11-27] MEDS ORDERED: SODIUM CHLORIDE 0.9% 1,000 ML IV STA (16:13)
--- NOTE | 2019-11-27 16:18 | ED ---
Abdominal Pain HPI - General Chief Complaint: Abdominal Pain Stated Complaint: Abd Pain Time Seen by Provider: 11/27/19 16:00 Source: patient, RN notes reviewed, old records reviewed Mode of arrival: ambulatory Limitations: no limitations - History of Present Illness Initial Comments: This is a 29-year-old male DF for evaluation patient today for evaluation regards to nausea is gone through a lot. 6 occasional diaphoresis generalized abdominal pain. No travel history. Labwork and also. No fevers. Occasional diarrhea or loose stools. Patient did notice some black stools. MD Complaint: abdominal pain -: days(s) Location: diffuse, epigastric, suprapubic Radiation: epigastric, suprapubic Severity: mild Severity scale (1-10): 3 Quality: cramping Consistency: intermittent Improves With: nothing Worsens With: nothing Context: sick contacts Associated Symptoms: nausea, vomiting, diarrhea, fever - Related Data Home Medications Medication Instructions Recorded Confirmed DULoxetine HCL [Cymbalta] 30 mg PO BID 11/06/19 11/06/19 Ibuprofen [Motrin Ib] 400 mg PO Q8H PRN 11/06/19 11/06/19 Allergies Allergy/AdvReac Type Severity Reaction Status Date / Time No Known Allergies Allergy Verified 11/27/19 15:58 Review of Systems ROS Statement: Those systems with pertinent positive or pertinent negative responses have been documented in the HPI. ROS Other: All systems not noted in ROS Statement are negative. Past Medical History Past Medical History: Asthma Additional Past Medical History / Comment(s): Hypoglycemia, back pain, enlarged heart History of Any Multi-Drug Resistant Organisms: None Reported Past Surgical History: No Surgical Hx Reported Additional Past Surgical History / Comment(s): cyst removed from dorsum of left hand. Past Psychological History: Anxiety, Bipolar, Depression Smoking Status: Vaper Past Alcohol Use History: None Reported Past Drug Use History: Marijuana General Exam Limitations: no limitations General appearance: alert, in no apparent distress Head exam: Present: atraumatic, normocephalic, normal inspection Eye exam: Present: normal appearance, PERRL, EOMI. Absent: scleral icterus, conjunctival injection, periorbital swelling ENT exam: Present: normal exam, mucous membranes moist Neck exam: Present: normal inspection. Absent: tenderness, meningismus, ly mphadenopathy Respiratory exam: Present: normal lung sounds bilaterally. Absent: respiratory distress, wheezes, rales, rhonchi, stridor Cardiovascular Exam: Present: regular rate, normal rhythm, normal heart sounds. Absent: systolic murmur, diastolic murmur, rubs, gallop, clicks GI/Abdominal exam: Present: soft, normal bowel sounds. Absent: distended, tenderness, guarding, rebound, rigid Extremities exam: Present: normal inspection, full ROM, normal capillary refill. Absent: tenderness, pedal edema, joint swelling, calf tenderness Back exam: Present: normal inspection Neurological exam: Present: alert, oriented X3, CN II-XII intact Psychiatric exam: Present: normal affect, normal mood Skin exam: Present: warm, dry, intact, normal color. Absent: rash Course Vital Signs 11/27/19 15:58 Temperature 98.8 F Pulse Rate 69 Respiratory 18 Rate Blood Pressure 117/89 O2 Sat by Pulse 97 Oximetry - Reevaluation(s) Reevaluation #1: 11/27/19 17:19 Medical record is reviewed Reevaluation #2: 11/27/19 17:19 Patient does still mildly improved. Informed of results, questions answered feels good for discharge Medical Decision Making - Medical Decision Making 29 male to the ER for evaluation. Patient has a for evaluation regards to abdominal pain nausea vomiting feeling improved now for discharge - Lab Data Result diagrams: 11/27/19 16:23 11/27/19 16:23 Lab Results 11/27/19 11/27/19 Range/Units 16:23 16:23 WBC 7.0 (3.8-10.6) k/uL RBC 5.31 (4.30-5.90) m/uL Hgb 16.1 (13.0-17.5) gm/dL Hct 47.6 (39.0-53.0) % MCV 89.6 (80.0-100.0) fL MCH 30.3 (25.0-35.0) pg MCHC 33.8 (31.0-37.0) g/dL RDW 12.6 (11.5-15.5) % Plt Count 317 (150-450) k/uL Neutrophils % 65 % Lymphocytes % 23 % Monocytes % 5 % Eosinophils % 4 % Basophils % 1 % Neutrophils # 4.6 (1.3-7.7) k/uL Lymphocytes # 1.6 (1.0-4.8) k/uL Monocytes # 0.4 (0-1.0) k/uL Eosinophils # 0.3 (0-0.7) k/uL Basophils # 0.1 (0-0.2) k/uL Sodium 138 (137-145) mmol/L Potassium 4.6 (3.5-5.1) mmol/L Chloride 106 (98-107) mmol/L Carbon Dioxide 25 (22-30) mmol/L Anion Gap 7 mmol/L BUN 17 (9-20) mg/dL Creatinine 0.81 (0.66-1.25) mg/dL Est GFR (CKD-EPI)AfAm >90 (>60 ml/min/1.73 sqM) Est GFR (CKD-EPI)NonAf >90 (>60 ml/min/1.73 sqM) Glucose 96 (74-99) mg/dL Calcium 10.3 H (8.4-10.2) mg/dL Total Bilirubin 0.8 (0.2-1.3) mg/dL AST 29 (17-59) U/L ALT 24 (4-49) U/L Alkaline Phosphatase 47 (38-126) U/L Creatine Kinase 131 (55-170) U/L Total Protein 7.6 (6.3-8.2) g/dL Albumin 5.2 H (3.5-5.0) g/dL Amylase 64 (30-110) U/L Lipase 70 (23-300) U/L Disposition Clinical Impression: Abdominal pain, Gastroenteritis, Nausea & vomiting Disposition: HOME SELF-CARE Condition: Good Instructions (If sedation given, give patient instructions): Abdominal Pain (ED), Acute Nausea and Vomiting (ED) Is patient prescribed a controlled substance at d/c from ED?: No Referrals: Edwardo Harmon MD [Primary Care Provider] - 1-2 days
[2019-11-27 16:41] LABS: Basophils # (A) 0.1 k/uL (0-0.2); Basophils % (A) 1 %; Eosinophils # (A) 0.3 k/uL (0-0.7); Eosinophils % (A) 4 %; HCT 47.6 % (39.0-53.0); HGB 16.1 gm/dL (13.0-17.5); Lymphocytes # (A) 1.6 k/uL (1.0-4.8); Lymphocytes % (A) 23 %; MCH 30.3 pg (25.0-35.0); MCHC 33.8 g/dL (31.0-37.0); MCV 89.6 fL (80.0-100.0); Monocytes # (A) 0.4 k/uL (0-1.0); Monocytes % (A) 5 %; Neutrophils # (A) 4.6 k/uL (1.3-7.7); Neutrophils % (A) 65 %; Platelet Count 317 k/uL (150-450); RBC 5.31 m/uL (4.30-5.90); RDW 12.6 % (11.5-15.5)
[2019-11-27 16:54] LABS: ALT 24 U/L (4-49); AST 29 U/L (17-59); African American GFR (CKD) >90 (>60 ml/min/1.73 sqM); Albumin 5.2 g/dL (3.5-5.0); Alkaline Phosphatase 47 U/L (38-126); Amylase 64 U/L (30-110); Anion Gap 7 mmol/L; Blood Urea Nitrogen 17 mg/dL (9-20); Calcium 10.3 mg/dL (8.4-10.2); Carbon Dioxide 25 mmol/L (22-30); Chloride 106 mmol/L (98-107); Creatine Kinase 131 U/L (55-170); Glucose 96 mg/dL (74-99); Non-African American GFR(CKD) >90 (>60 ml/min/1.73 sqM); Potassium 4.6 mmol/L (3.5-5.1); Sodium 138 mmol/L (137-145); Total Bilirubin 0.8 mg/dL (0.2-1.3); Total Protein 7.6 g/dL (6.3-8.2)
[2019-11-27] MEDS ORDERED: ONDANSETRON 4 MG/2 ML VIAL IVP STA (17:17)
[2019-11-27] MEDS ORDERED: PANTOPRAZOLE 40 MG/10 ML VIAL IVP STA (17:17)
[2019-11-27] MEDS ORDERED: ONDANSETRON 4 MG ODT STARTER PACK 2 TAB BTL PO STA (17:20)
[2019-11-27 18:08] VITALS: BP 126/77; PULSE 59; TEMP 97.9
== END 2019-11-27 17:53 | disposition home or self-care (01) ==
LOC: EC 15:38
DX: K52.9 Noninfective gastroenteritis and colitis, unspecified (principal); F41.9 Anxiety disorder, unspecified; R61 Generalized hyperhidrosis; F31.9 Bipolar disorder, unspecified; F17.290 Nicotine dependence, other tobacco product, uncomplicated; Z79.899 Other long term (current) drug therapy
CPT/HCPCS: 36415; 80053; 82150; 82550; 83690; 85025; 96374; 96375; 96361; 99284; J2405; S0119; C9113

== ENCOUNTER → 2020-01-10 | Outpatient (CLI) | payer BC | END | disposition home or self-care (01) | LOC: LABWHC1 14:32 | PROVIDERS: ATTEND Family Medicine | DX: R50.9 Fever, unspecified (principal); R19.7 Diarrhea, unspecified | CPT/HCPCS: U0003; C9803 ==

== ENCOUNTER → 2020-03-02 | Outpatient (CLI) | payer BC | END | disposition home or self-care (01) | LOC: LABWHC1 16:42 | PROVIDERS: ATTEND Family Medicine | DX: Z20.828 Contact with and (suspected) exposure to other viral communicable diseases (principal) | CPT/HCPCS: U0003; C9803 ==

== ENCOUNTER 2021-01-24 09:58 | Emergency (ER) | payer OTHER ==
--- NOTE | 2021-01-24 11:00 | ED ---
General Adult HPI - General Chief complaint: Upper Respiratory Infection Stated complaint: Fever/Headache/NAE Time Seen by Provider: 01/24/21 10:08 Source: patient Mode of arrival: ambulatory Limitations: no limitations - History of Present Illness Initial comments: 30-year-old male presents to the emergency room for a chief complaint of not feeling well. One week ago patient developed congestion and headaches. Patient states that on Monday he developed a cough and sore throat. He has had low- grade fevers on and off up to 100.0. Patient did test negative for Cross virus.patient states he does have a history of asthma. He also smokes daily. Patient has no other complaints at this time including shortness of breath, chest pain, abdominal pain, nausea or vomiting, headache, or visual changes. - Related Data Home Medications Medication Instructions Recorded Confirmed DULoxetine HCL [Cymbalta] 60 mg PO DIRECTED 01/24/21 01/24/21 Previous Rx's Medication Instructions Recorded Albuterol Inhaler [Ventolin Hfa 2 puff INHALATION RT-QID PRN #8 gm 01/24/21 Inhaler] Azithromycin [Zithromax Z-pack (6 250 mg PO DIRECTED #6 tab 01/24/21 tabs)] predniSONE 50 mg PO DAILY #5 tablet 01/24/21 Allergies Allergy/AdvReac Type Severity Reaction Status Date / Time No Known Allergies Allergy Verified 01/24/21 12:16 Review of Systems ROS Statement: Those systems with pertinent positive or pertinent negative responses have been documented in the HPI. ROS Other: All systems not noted in ROS Statement are negative. Past Medical History Past Medical History: Asthma Additional Past Medical History / Comment(s): Hypoglycemia, back pain, enlarged heart History of Any Multi-Drug Resistant Organisms: None Reported Past Surgical History: No Surgical Hx Reported Additional Past Surgical History / Comment(s): cyst removed from dorsum of left hand. Past Psychological History: Anxiety, Bipolar, Depression Smoking Status: Vaper Past Alcohol Use History: None Reported Past Drug Use History: Marijuana General Exam Limitations: no limitations General appearance: alert, in no apparent distress Head exam: Present: atraumatic Eye exam: Present: normal appearance, PERRL, EOMI. Absent: scleral icterus, conjunctival injection ENT exam: Present: normal exam, mucous membranes moist Neck exam: Present: normal inspection, full ROM. Absent: tenderness Respiratory exam: Present: normal lung sounds bilaterally. Absent: respiratory distress, wheezes Cardiovascular Exam: Present: regular rate, normal rhythm, normal heart sounds GI/Abdominal exam: Present: soft, normal bowel sounds. Absent: distended, tenderness Course Vital Signs 01/24/21 01/24/21 10:01 10:46 Temperature 99.3 F Pulse Rate 94 Respiratory 18 16 Rate Blood Pressure 126/81 O2 Sat by Pulse 98 Oximetry Medical Decision Making - Medical Decision Making Vitals are stable. Patient is well-appearing. Patient does have congestion and a cough. Influenza and RSV and coronavirus are negative. Chest x-ray shows no acute process. Patient does have asthma and will be started on steroids and inhaler. Symptoms have been ongoing for over a week and he is having low-grade fevers due to start him on azithromycin. She will follow up with his doctor. He will return here for any worsening symptoms. - Lab Data Lab Results 01/24/21 Range/Units 10:49 Influenza Type A (PCR) Not Detected (Not Detectd) Influenza Type B (PCR) Not Detected (Not Detectd) RSV (PCR) Not Detected (Not Detectd) SARS-CoV-2 (PCR) Not Detected (Not Detectd) Disposition Clinical Impression: Cough, Sinusitis Disposition: HOME SELF-CARE Condition: Good Instructions (If sedation given, give patient instructions): Upper Respiratory Infection (ED) Additional Instructions: Please take medications as directed. Follow-up with her doctor. Return to the emergency room for any worsening symptoms. Prescriptions: predniSONE 50 mg PO DAILY #5 tablet Albuterol Inhaler [Ventolin Hfa Inhaler] 2 puff INHALATION RT-QID PRN #8 gm PRN Reason: Shortness Of Breath Azithromycin [Zithromax Z-pack (6 tabs)] 250 mg PO DIRECTED #6 tab Is patient prescribed a controlled substance at d/c from ED?: No Referrals: Edwardo Harmon MD [Primary Care Provider] - 1-2 days Time of Disposition: 12:23
--- NOTE | 2021-01-24 11:52 | XR ---
EXAMINATION TYPE: XR chest 2V DATE OF EXAM: 01/24/2021 COMPARISON: Chest x-ray 11/06/2019 HISTORY: Cough, difficulty breathing TECHNIQUE: Frontal and lateral views of the chest are obtained. FINDINGS: There is no focal air space opacity, pleural effusion, or pneumothorax seen. The cardiac silhouette size is within normal limits. The osseous structures are intact. IMPRESSION: No acute cardiopulmonary process.
[2021-01-24] MEDS ORDERED: predniSONE 50 MG TAB PO STA (12:23)
[2021-01-24] MEDS ORDERED: AZITHROMYCIN 500 MG TAB PO STA (12:23)
[2021-01-24 12:43] VITALS: BP 133/79; PULSE 64; RESP 20; TEMP 98.1
== END 2021-01-24 12:42 | disposition home or self-care (01) ==
LOC: EC 09:58
DX: R05 Cough (principal); J32.8 Other chronic sinusitis; J45.909 Unspecified asthma, uncomplicated; F41.9 Anxiety disorder, unspecified; F31.9 Bipolar disorder, unspecified; F17.290 Nicotine dependence, other tobacco product, uncomplicated; F12.90 Cannabis use, unspecified, uncomplicated; Z20.822 Contact with and (suspected) exposure to COVID-19
CPT/HCPCS: 99284; 87636; 71046; J7512

== ENCOUNTER 2021-04-14 10:17 | Emergency (ER) | payer OTHER ==
[2021-04-14 10:29] VITALS: RESP 18; TEMP 98.4
[2021-04-14] MEDS ORDERED: SODIUM CHLORIDE 0.9% 1,000 ML IV STA (11:10)
[2021-04-14] MEDS ORDERED: ONDANSETRON 4 MG/2 ML VIAL IVP STA (11:10)
--- NOTE | 2021-04-14 11:13 | ED ---
General Adult HPI - General Chief complaint: Nausea/Vomiting/Diarrhea Stated complaint: diarrhea, abd pain & headache Time Seen by Provider: 04/14/21 11:05 Source: patient, RN notes reviewed, old records reviewed Mode of arrival: ambulatory Limitations: no limitations - History of Present Illness Initial comments: Well-appearing 30-year-old gentleman presents to the emergency room with complaints of nausea and diarrhea that started on Monday with diffuse abdominal pain. Patient states that the pain is cramping in nature 9 out of 10 relieved with diarrhea. He states he has approximately 4 bowel movements a day. He's had a low-grade fever. He has been vaccinated against coronavirus. He did have Covid last month. Has history of asthma and he is a smoker. -: days(s) (4) Location: abdomen Severity scale (1-10): 9 Quality: other (cramping) Consistency: intermittent Improves with: other (bowel movement) Worsens with: none Associated Symptoms: fever/chills, headaches, nausea/vomiting (no vomiting) Treatments Prior to Arrival: none - Related Data Home Medications Medication Instructions Recorded Confirmed DULoxetine HCL [Cymbalta] 60 mg PO DIRECTED 01/24/21 04/14/21 Previous Rx's Medication Instructions Recorded Tamsulosin [Flomax] 0.4 mg PO DAILY #7 cap 04/14/21 Allergies Allergy/AdvReac Type Severity Reaction Status Date / Time No Known Allergies Allergy Verified 04/14/21 12:32 Review of Systems ROS Statement: Those systems with pertinent positive or pertinent negative responses have been documented in the HPI. ROS Other: All systems not noted in ROS Statement are negative. Past Medical History Past Medical History: Asthma Additional Past Medical History / Comment(s): Hypoglycemia, back pain, enlarged heart History of Any Multi-Drug Resistant Organisms: None Reported Past Surgical History: No Surgical Hx Reported Additional Past Surgical History / Comment(s): cyst removed from dorsum of left hand. Past Psychological History: Anxiety, Bipolar, Depression Smoking Status: Vaper Past Alcohol Use History: None Reported Past Drug Use History: Marijuana General Exam Limitations: no limitations General appearance: alert, in no apparent distress Head exam: Present: atraumatic, normocephalic, normal inspection Eye exam: Present: normal appearance, EOMI. Absent: scleral icterus, conjunctival injection, periorbital swelling ENT exam: Present: normal exam, normal oropharynx, mucous membranes moist Neck exam: Present: normal inspection, full ROM. Absent: tenderness, meningismus, lymphadenopathy, thyromegaly Respiratory exam: Present: normal lung sounds bilaterally. Absent: respiratory distress, wheezes, rales, rhonchi, stridor, chest wall tenderness, accessory muscle use Cardiovascular Exam: Present: regular rate, normal rhythm, normal heart sounds. Absent: JVD GI/Abdominal exam: Present: soft, normal bowel sounds. Absent: distended, tenderness, guarding, rebound, rigid Back exam: Present: normal inspection, full ROM. Absent: tenderness, CVA tenderness (R), CVA tenderness (L), rash noted Neurological exam: Present: alert, oriented X3 Psychiatric exam: Present: normal affect, normal mood Skin exam: Present: warm, dry, intact, normal color. Absent: rash, cyanosis, diaphoretic Course Vital Signs 04/14/21 04/14/21 10:25 14:32 Temperature 98.4 F Pulse Rate 63 78 Respiratory 18 18 Rate Blood Pressure 116/67 142/70 O2 Sat by Pulse 97 98 Oximetry - Reevaluation(s) Reevaluation #1: 04/14/21 12:48 Urinalysis shows blood. Upon reassessment states he did get some relief with IV fluids and Zofran. He still states pain is 8 out of 10. He states that started on the left flank and radiated around the left lower abdomen. CT was ordered to rule out kidney stone. Time: 12:48 Medical Decision Making - Medical Decision Making 30-year-old male presents with complaints of left-sided abdominal pain with nausea and diarrhea. Patient states that the pain started at the left flank and did radiate around to his abdomen. Coronavirus influenza swabs are negative. His urinalysis shows small amount of blood with 15 RBCs. There is no evidence of leukocytosis, hemoglobin and hematocrit are stable. Electrolytes are unremarkable. CT shows mild prominence of the left renal pelvis. There is a questionable tiny 1 mm distal left ureteral calculus noted on image. This is consistent with a recently passed stone. He states that the pain has resolved and he is feeling much better. No signs are stable patient has been afebrile. Patient was given Flomax and a referral to urology. Directed to return to the emergency room with any new or concerning symptoms. Case discussed with Dr. Hernandez - Lab Data Result diagrams: 04/14/21 11:28 04/14/21 11:28 Lab Results 04/14/21 04/14/21 04/14/21 Range/Units 11:28 11:28 11:28 WBC 5.6 (3.8-10.6) k/uL RBC 5.12 (4.30-5.90) m/uL Hgb 15.9 (13.0-17.5) gm/dL Hct 46.4 (39.0-53.0) % MCV 90.6 (80.0-100.0) fL MCH 31.1 (25.0-35.0) pg MCHC 34.3 (31.0-37.0) g/dL RDW 13.1 (11.5-15.5) % Plt Count 301 (150-450) k/uL MPV 7.3 Neutrophils % 61 % Lymphocytes % 24 % Monocytes % 7 % Eosinophils % 5 % Basophils % 1 % Neutrophils # 3.5 (1.3-7.7) k/uL Lymphocytes # 1.3 (1.0-4.8) k/uL Monocytes # 0.4 (0-1.0) k/uL Eosinophils # 0.3 (0-0.7) k/uL Basophils # 0.1 (0-0.2) k/uL Sodium 140 (137-145) mmol/L Potassium 4.6 (3.5-5.1) mmol/L Chloride 106 (98-107) mmol/L Carbon Dioxide 23 (22-30) mmol/L Anion Gap 11 mmol/L BUN 12 (9-20) mg/dL Creatinine 0.87 (0.66-1.25) mg/dL Est GFR (CKD-EPI)AfAm >90 (>60 ml/min/1.73 sqM) Est GFR (CKD-EPI)NonAf >90 (>60 ml/min/1.73 sqM) Glucose 112 H (74-99) mg/dL Calcium 10.3 H (8.4-10.2) mg/dL Total Bilirubin 1.1 (0.2-1.3) mg/dL AST 22 (17-59) U/L ALT 18 (4-49) U/L Alkaline Phosphatase 54 (38-126) U/L Total Protein 7.5 (6.3-8.2) g/dL Albumin 4.8 (3.5-5.0) g/dL Amylase 101 (30-110) U/L Lipase 300 (23-300) U/L Urine Color Yellow Urine Appearance Clear (Clear) Urine pH 6.0 (5.0-8.0) Ur Specific [place] 1.020 (1.001-1.035) Urine Protein Trace H (Negative) Urine Glucose (UA) Negative (Negative) Urine Ketones Negative (Negative) Urine Blood Small H (Negative) Urine Nitrite Negative (Negative) Urine Bilirubin Negative (Negative) Urine Urobilinogen <2.0 (<2.0) mg/dL Ur Leukocyte Esterase Negative (Negative) Urine RBC 15 H (0-5) /hpf Urine WBC <1 (0-5) /hpf Ur Squamous Epith Cells <1 (0-4) /hpf Urine Mucus Moderate H (None) /hpf Influenza Type A (PCR) (Not Detectd) Influenza Type B (PCR) (Not Detectd) RSV (PCR) (Not Detectd) SARS-CoV-2 (PCR) (Not Detectd) 04/14/21 Range/Units 11:28 WBC (3.8-10.6) k/uL RBC (4.30-5.90) m/uL Hgb (13.0-17.5) gm/dL Hct (39.0-53.0) % MCV (80.0-100.0) fL MCH (25.0-35.0) pg MCHC (31.0-37.0) g/dL RDW (11.5-15.5) % Plt Count (150-450) k/uL MPV Neutrophils % % Lymphocytes % % Monocytes % % Eosinophils % % Basophils % % Neutrophils # (1.3-7.7) k/uL Lymphocytes # (1.0-4.8) k/uL Monocytes # (0-1.0) k/uL Eosinophils # (0-0.7) k/uL Basophils # (0-0.2) k/uL Sodium (137-145) mmol/L Potassium (3.5-5.1) mmol/L Chloride (98-107) mmol/L Carbon Dioxide (22-30) mmol/L Anion Gap mmol/L BUN (9-20) mg/dL Creatinine (0.66-1.25) mg/dL Est GFR (CKD-EPI)AfAm (>60 ml/min/1.73 sqM) Est GFR (CKD-EPI)NonAf (>60 ml/min/1.73 sqM) Glucose (74-99) mg/dL Calcium (8.4-10.2) mg/dL Total Bilirubin (0.2-1.3) mg/dL AST (17-59) U/L ALT (4-49) U/L Alkaline Phosphatase (38-126) U/L Total Protein (6.3-8.2) g/dL Albumin (3.5-5.0) g/dL Amylase (30-110) U/L Lipase (23-300) U/L Urine Color Urine Appearance (Clear) Urine pH (5.0-8.0) Ur Specific [place] (1.001-1.035) Urine Protein (Negative) Urine Glucose (UA) (Negative) Urine Ketones (Negative) Urine Blood (Negative) Urine Nitrite (Negative) Urine Bilirubin (Negative) Urine Urobilinogen (<2.0) mg/dL Ur Leukocyte Esterase (Negative) Urine RBC (0-5) /hpf Urine WBC (0-5) /hpf Ur Squamous Epith Cells (0-4) /hpf Urine Mucus (None) /hpf Influenza Type A (PCR) Not Detected (Not Detectd) Influenza Type B (PCR) Not Detected (Not Detectd) RSV (PCR) Not Detected (Not Detectd) SARS-CoV-2 (PCR) Not Detected (Not Detectd) Disposition Clinical Impression: Kidney stone Disposition: HOME SELF-CARE Condition: Good Instructions (If sedation given, give patient instructions): Kidney Stones (ED) Additional Instructions: Increase your fluid intake and follow-up with the primary care doctor and urology. Take Flomax as prescribed. Return to the emergency room with any new or concerning symptoms including fever, increased pain or inability to urinate. Prescriptions: Tamsulosin [Flomax] 0.4 mg PO DAILY #7 cap Is patient prescribed a controlled substance at d/c from ED?: No Referrals: Edwardo Harmon MD [Primary Care Provider] - 1-2 days Time of Disposition: 14:14
[2021-04-14 11:48] LABS: Basophils # (A) 0.1 k/uL (0-0.2); Basophils % (A) 1 %; Eosinophils # (A) 0.3 k/uL (0-0.7); Eosinophils % (A) 5 %; HCT 46.4 % (39.0-53.0); HGB 15.9 gm/dL (13.0-17.5); Lymphocytes # (A) 1.3 k/uL (1.0-4.8); Lymphocytes % (A) 24 %; MCH 31.1 pg (25.0-35.0); MCHC 34.3 g/dL (31.0-37.0); MCV 90.6 fL (80.0-100.0); Mean Platelet Volume 7.3; Monocytes # (A) 0.4 k/uL (0-1.0); Monocytes % (A) 7 %; Neutrophils # (A) 3.5 k/uL (1.3-7.7); Neutrophils % (A) 61 %; Platelet Count 301 k/uL (150-450); RBC 5.12 m/uL (4.30-5.90); RDW 13.1 % (11.5-15.5); WBC 5.6 k/uL (3.8-10.6)
[2021-04-14 12:07] LABS: ALT 18 U/L (4-49); AST 22 U/L (17-59); African American GFR (CKD) >90 (>60 ml/min/1.73 sqM); Albumin 4.8 g/dL (3.5-5.0); Alkaline Phosphatase 54 U/L (38-126); Amylase 101 U/L (30-110); Anion Gap 11 mmol/L; Blood Urea Nitrogen 12 mg/dL (9-20); Calcium 10.3 mg/dL (8.4-10.2); Carbon Dioxide 23 mmol/L (22-30); Chloride 106 mmol/L (98-107); Glucose 112 mg/dL (74-99); Lipase 300 U/L (23-300); Non-African American GFR(CKD) >90 (>60 ml/min/1.73 sqM); Potassium 4.6 mmol/L (3.5-5.1); Sodium 140 mmol/L (137-145); Total Bilirubin 1.1 mg/dL (0.2-1.3); Total Protein 7.5 g/dL (6.3-8.2)
[2021-04-14 12:27] LABS: Appearance,Urine Clear (Clear); Bilirubin,Urine Negative (Negative); Blood,Urine Small (Negative); Color,Urine Yellow; Glucose,Urine (UA) Negative (Negative); Ketones,Urine Negative (Negative); Leukocyte Esterase,Urine Negative (Negative); Mucus,Urine Moderate /hpf; Nitrite,Urine Negative (Negative); Protein,Urine Trace (Negative); RBC,Urine 15 /hpf (0-5); Squamous Epithelial Cell,Urine <1 /hpf (0-4); Urobilinogen,Urine <2.0 mg/dL (<2.0); WBC,Urine <1 /hpf (0-5)
[2021-04-14] MEDS ORDERED: KETOROLAC 15 MG/ML 1 ML VIAL IVP STA (12:48)
--- NOTE | 2021-04-14 13:49 | CT ---
EXAMINATION TYPE: CT abdomen pelvis wo con DATE OF EXAM: 04/14/2021 COMPARISON: 05/18/2015 HISTORY: Left flank pain, lower abdominal pain. CT DLP: 518.1 mGycm Automated exposure control for dose reduction was used. TECHNIQUE: Helical acquisition of images was performed from the lung bases through the pelvis. FINDINGS: LUNG BASES: No significant abnormality is appreciated. LIVER/GB: No significant abnormality is appreciated. PANCREAS: No significant abnormality is seen. SPLEEN: No significant abnormality is seen. ADRENALS: No significant abnormality is seen. KIDNEYS: Mild fullness to the left renal pelvis. No renal calculi bilaterally. Correlate for infectio us etiology or recently passed stone.. ADENOPATHY: None visualized. OSSEOUS STRUCTURES: No significant abnormality is seen. BOWEL: Bowel gas pattern nonspecific no obstruction. OTHER: Aorta of normal caliber. No free fluid or free air. IMPRESSION: THERE IS MILD PROMINENCE OF THE LEFT RENAL PELVIS RELATIVE TO THE RIGHT COMPATIBLE WITH. MILD PELVOCA LIECTASIS. NO OVERT HYDRONEPHROSIS. THERE IS A QUESTIONABLE TINY 1 MM DISTAL LEFT URETERAL CALCULUS N OTED ON AXIAL IMAGE 108. CORRELATE CLINICALLY. OTHERWISE CONSIDER INFECTIOUS ETIOLOGY OR RECENTLY PAS SED STONE CORRELATE WITH URINALYSIS..
[2021-04-14 14:33] VITALS: BP 142/70; PULSE 78
== END 2021-04-14 14:33 | disposition home or self-care (01) ==
LOC: EC 10:17
DX: N20.0 Calculus of kidney (principal); R51.9 Headache, unspecified; F17.290 Nicotine dependence, other tobacco product, uncomplicated; J45.909 Unspecified asthma, uncomplicated; Z20.822 Contact with and (suspected) exposure to COVID-19
CPT/HCPCS: 36415; 80053; 82150; 83690; 85025; 81001; 87636; 74176; 99284; 96374; 96375; 96361; J2405; J1885

== ENCOUNTER 2021-06-21 11:03 | Emergency (ER) | payer OTHER ==
[2021-06-21 11:21] VITALS: RESP 18
[2021-06-21] MEDS ORDERED: SODIUM CHLORIDE 0.9% 2,000 ML IV STA (11:57)
[2021-06-21] MEDS ORDERED: FAMOTIDINE 20 MG/2 ML VIAL IV STA (11:57)
[2021-06-21] MEDS ORDERED: ONDANSETRON 4 MG/2 ML VIAL IVP STA (11:57)
[2021-06-21] MEDS ORDERED: KETOROLAC 15 MG/ML 1 ML VIAL IVP STA (11:57)
--- NOTE | 2021-06-21 12:11 | ED ---
Nausea/Vomiting/Diarrhea HPI - General Chief complaint: Nausea/Vomiting/Diarrhea Stated complaint: Nausea, vomiting, Time Seen by Provider: 06/21/21 11:24 Source: patient, RN notes reviewed Mode of arrival: ambulatory Limitations: no limitations - History of Present Illness Initial comments: This is a 30-year-old male presents emergency from chief complaint of nausea vomiting diarrhea. Patient states that symptoms started Monday have not alleviated. He does complain of some abdominal pain, low back pain. Patient states this started after his episodes of emesis. Patient denies any melena, hematochezia, hematemesis or coffee ground emesis. Patient states that his daughter had similar symptoms that were present on and Monday. Patient states that her symptoms have resolved. Patient denies fevers, chills no headache no dizziness. - Related Data Home Medications Medication Instructions Recorded Confirmed DULoxetine HCL [Cymbalta] 60 mg PO DIRECTED 01/24/21 04/14/21 Previous Rx's Medication Instructions Recorded Tamsulosin [Flomax] 0.4 mg PO DAILY #7 cap 04/14/21 Ondansetron Odt [Zofran Odt] 4 mg PO Q8HR PRN #10 tab 06/21/21 Allergies Allergy/AdvReac Type Severity Reaction Status Date / Time No Known Allergies Allergy Verified 06/21/21 11:21 Review of Systems ROS Statement: Those systems with pertinent positive or pertinent negative responses have been documented in the HPI. ROS Other: All systems not noted in ROS Statement are negative. Past Medical History Past Medical History: Asthma Additional Past Medical History / Comment(s): Hypoglycemia, back pain, enlarged heart History of Any Multi-Drug Resistant Organisms: None Reported Past Surgical History: No Surgical Hx Reported Additional Past Surgical History / Comment(s): cyst removed from dorsum of left hand. Past Psychological History: Anxiety, Bipolar, Depression Smoking Status: Vaper Past Alcohol Use History: None Reported Past Drug Use History: Marijuana General Exam Limitations: no limitations General appearance: alert, in no apparent distress Head exam: Present: atraumatic, normocephalic, normal inspection Eye exam: Present: normal appearance, PERRL, EOMI. Absent: scleral icterus, conjunctival injection, periorbital swelling ENT exam: Present: normal exam, normal oropharynx, mucous membranes moist Neck exam: Present: normal inspection, full ROM. Absent: tenderness, meningismus, lymphadenopathy Respiratory exam: Present: normal lung sounds bilaterally. Absent: respiratory distress, wheezes, rales, rhonchi, stridor Cardiovascular Exam: Present: regular rate, normal rhythm, normal heart sounds. Absent: systolic murmur, diastolic murmur, rubs, gallop, clicks Back exam: Absent: CVA tenderness (R), CVA tenderness (L) Neurological exam: Present: alert Course Vital Signs 06/21/21 11:17 Temperature 98.2 F Pulse Rate 58 L Respiratory 18 Rate Blood Pressure 115/80 O2 Sat by Pulse 96 Oximetry Medical Decision Making - Medical Decision Making 30-year-old presented for nausea vomiting diarrhea. Patient's symptoms are consistent with gastritis labs reviewed no specific findings. Patient was hydrated given antiemetics. Patient discharged in stable condition return parameters were discussed. - Lab Data Result diagrams: 06/21/21 11:30 06/21/21 11:30 Lab Results 06/21/21 06/21/21 06/21/21 Range/Units 11:30 11:30 11:30 WBC 6.5 (3.8-10.6) k/uL RBC 5.36 (4.30-5.90) m/uL Hgb 16.5 (13.0-17.5) gm/dL Hct 48.4 (39.0-53.0) % MCV 90.2 (80.0-100.0) fL MCH 30.8 (25.0-35.0) pg MCHC 34.2 (31.0-37.0) g/dL RDW 13.3 (11.5-15.5) % Plt Count 281 (150-450) k/uL MPV 7.4 Neutrophils % 79 % Lymphocytes % 12 % Monocytes % 6 % Eosinophils % 1 % Basophils % 1 % Neutrophils # 5.1 (1.3-7.7) k/uL Lymphocytes # 0.8 L (1.0-4.8) k/uL Monocytes # 0.4 (0-1.0) k/uL Eosinophils # 0.1 (0-0.7) k/uL Basophils # 0.0 (0-0.2) k/uL Sodium 138 (137-145) mmol/L Potassium 4.1 (3.5-5.1) mmol/L Chloride 104 (98-107) mmol/L Carbon Dioxide 24 (22-30) mmol/L Anion Gap 10 mmol/L BUN 14 (9-20) mg/dL Creatinine 0.98 (0.66-1.25) mg/dL Est GFR (CKD-EPI)AfAm >90 (>60 ml/min/1.73 sqM) Est GFR (CKD-EPI)NonAf >90 (>60 ml/min/1.73 sqM) Glucose 104 H (74-99) mg/dL Calcium 9.6 (8.4-10.2) mg/dL Total Bilirubin 0.8 (0.2-1.3) mg/dL AST 23 (17-59) U/L ALT 17 (4-49) U/L Alkaline Phosphatase 52 (38-126) U/L Total Protein 7.8 (6.3-8.2) g/dL Albumin 4.9 (3.5-5.0) g/dL Lipase 48 (23-300) U/L Urine Color Yellow Urine Appearance Clear (Clear) Urine pH 6.0 (5.0-8.0) Ur Specific [place] 1.027 (1.001-1.035) Urine Protein 1+ H (Negative) Urine Glucose (UA) Negative (Negative) Urine Ketones 1+ H (Negative) Urine Blood Moderate H (Negative) Urine Nitrite Negative (Negative) Urine Bilirubin 1+ H (Negative) Urine Urobilinogen 2.0 (<2.0) mg/dL Ur Leukocyte Esterase Negative (Negative) Urine RBC 3 (0-5) /hpf Urine WBC 2 (0-5) /hpf Ur Squamous Epith Cells 1 (0-4) /hpf Urine Mucus Many H (None) /hpf Disposition Clinical Impression: Gastroenteritis Disposition: HOME SELF-CARE Condition: Stable Instructions (If sedation given, give patient instructions): Gastroenteritis (ED) Additional Instructions: Please return to the Emergency Department if symptoms worsen or any other concerns. Prescriptions: Ondansetron Odt [Zofran Odt] 4 mg PO Q8HR PRN #10 tab PRN Reason: Nausea Is patient prescribed a controlled substance at d/c from ED?: No Referrals: Edwardo Harmon MD [Primary Care Provider] - 1-2 days Time of Disposition: 13:01
[2021-06-21 12:41] LABS: ALT 17 U/L (4-49); AST 23 U/L (17-59); African American GFR (CKD) >90 (>60 ml/min/1.73 sqM); Albumin 4.9 g/dL (3.5-5.0); Alkaline Phosphatase 52 U/L (38-126); Anion Gap 10 mmol/L; Basophils % (A) 1 %; Blood Urea Nitrogen 14 mg/dL (9-20); Carbon Dioxide 24 mmol/L (22-30); Chloride 104 mmol/L (98-107); Eosinophils # (A) 0.1 k/uL (0-0.7); Eosinophils % (A) 1 %; Glucose 104 mg/dL (74-99); HCT 48.4 % (39.0-53.0); HGB 16.5 gm/dL (13.0-17.5); Lipase 48 U/L (23-300); Lymphocytes # (A) 0.8 k/uL (1.0-4.8); Lymphocytes % (A) 12 %; MCH 30.8 pg (25.0-35.0); MCHC 34.2 g/dL (31.0-37.0); MCV 90.2 fL (80.0-100.0); Mean Platelet Volume 7.4; Monocytes # (A) 0.4 k/uL (0-1.0); Monocytes % (A) 6 %; Neutrophils # (A) 5.1 k/uL (1.3-7.7); Neutrophils % (A) 79 %; Non-African American GFR(CKD) >90 (>60 ml/min/1.73 sqM); Platelet Count 281 k/uL (150-450); Potassium 4.1 mmol/L (3.5-5.1); RBC 5.36 m/uL (4.30-5.90); RDW 13.3 % (11.5-15.5); Sodium 138 mmol/L (137-145); Total Bilirubin 0.8 mg/dL (0.2-1.3); Total Protein 7.8 g/dL (6.3-8.2); WBC 6.5 k/uL (3.8-10.6)
[2021-06-21 12:57] LABS: Calcium 9.6 mg/dL (8.4-10.2)
[2021-06-21 12:59] LABS: Appearance,Urine Clear (Clear); Bilirubin,Urine 1+ (Negative); Blood,Urine Moderate (Negative); Color,Urine Yellow; Glucose,Urine (UA) Negative (Negative); Ketones,Urine 1+ (Negative); Leukocyte Esterase,Urine Negative (Negative); Mucus,Urine Many /hpf; Nitrite,Urine Negative (Negative); Protein,Urine 1+ (Negative); RBC,Urine 3 /hpf (0-5); Specific Gravity,Urine 1.027 (1.001-1.035); Squamous Epithelial Cell,Urine 1 /hpf (0-4); WBC,Urine 2 /hpf (0-5)
[2021-06-21 13:12] VITALS: BP 144/68; PULSE 89; TEMP 98.7
== END 2021-06-21 13:11 | disposition home or self-care (01) ==
LOC: EC 11:03
DX: K52.9 Noninfective gastroenteritis and colitis, unspecified (principal); J45.909 Unspecified asthma, uncomplicated; F41.9 Anxiety disorder, unspecified; F31.9 Bipolar disorder, unspecified; F17.290 Nicotine dependence, other tobacco product, uncomplicated; F12.90 Cannabis use, unspecified, uncomplicated
CPT/HCPCS: 99284; 96374; 96375 ×2; 96361; 36415; 80053; 83690; 85025; 81001; J2405; J1885

== ENCOUNTER 2022-03-02 03:05 | Emergency (ER) | payer OTHER ==
[2022-03-02 03:14] VITALS: TEMP 98
--- NOTE | 2022-03-02 03:18 | ED ---
URI HPI - General Chief Complaint: Upper Respiratory Infection Stated Complaint: Difficulty Breathing Time Seen by Provider: 03/02/22 03:18 Source: patient, RN notes reviewed, old records reviewed Mode of arrival: ambulatory Limitations: no limitations - History of Present Illness Initial Comments: This is a 31-year-old male DF for evaluation presents today for evaluation of influenza exposure. Patient received exposed to flu positive fever positive cough. No travel history. Patient not feeling well not feeling well at work. Patient has no other complaints. No significant medical history takes no medications. MD Complaint: fever, cough, sore throat, nasal congestion -: days(s) Severity: moderate Severity scale (1-10): 5 Quality: sharp Consistency: intermittent Improves With: nothing Worsens With: nothing Context: sick contacts Associated Symptoms: fever, chills, myalgias, sore throat, cough Treatments Prior to Arrival: none - Related Data Home Medications Medication Instructions Recorded Confirmed DULoxetine HCL [Cymbalta] 60 mg PO DIRECTED 01/24/21 04/14/21 Previous Rx's Medication Instructions Recorded Tamsulosin [Flomax] 0.4 mg PO DAILY #7 cap 04/14/21 Ondansetron Odt [Zofran Odt] 4 mg PO Q8HR PRN #10 tab 06/21/21 Allergies Allergy/AdvReac Type Severity Reaction Status Date / Time No Known Allergies Allergy Verified 03/02/22 03:10 Review of Systems ROS Statement: Those systems with pertinent positive or pertinent negative responses have been documented in the HPI. ROS Other: All systems not noted in ROS Statement are negative. Past Medical History Past Medical History: Asthma Additional Past Medical History / Comment(s): Hypoglycemia, back pain, enlarged heart History of Any Multi-Drug Resistant Organisms: None Reported Past Surgical History: No Surgical Hx Reported Additional Past Surgical History / Comment(s): cyst removed from dorsum of left hand. Past Psychological History: Anxiety, Bipolar, Depression Smoking Status: Vaper Past Alcohol Use History: None Reported Past Drug Use History: Marijuana General Exam Limitations: no limitations General appearance: alert, in no apparent distress Head exam: Present: atraumatic, normocephalic, normal inspection Eye exam: Present: normal appearance, PERRL, EOMI. Absent: scleral icterus, conjunctival injection, periorbital swelling ENT exam: Present: normal exam, mucous membranes moist Neck exam: Present: normal inspection. Absent: tenderness, meningismus, lymphadenopathy Respiratory exam: Present: normal lung sounds bilaterally. Absent: respiratory distress, wheezes, rales, rhonchi, stridor Cardiovascular Exam: Present: regular rate, normal rhythm, normal heart sounds. Absent: systolic murmur, diastolic murmur, rubs, gallop, clicks GI/Abdominal exam: Present: soft, normal bowel sounds. Absent: distended, tenderness, guarding, rebound, rigid Extremities exam: Present: normal inspection, full ROM, normal capillary refill. Absent: tenderness, pedal edema, joint swelling, calf tenderness Back exam: Present: normal inspection Neurological exam: Present: alert, oriented X3, CN II-XII intact Psychiatric exam: Present: normal affect, normal mood Skin exam: Present: warm, dry, intact, normal color. Absent: rash Course Vital Signs 03/02/22 03:10 Temperature 98 F Pulse Rate 68 Respiratory 16 Rate Blood Pressure 120/80 O2 Sat by Pulse 98 Oximetry - Reevaluation(s) Reevaluation #1: 03/02/22 05:05 Medical records reviewed Reevaluation #2: 03/02/22 05:05 Patient informed results and questions answered Medical Decision Making - Medical Decision Making 31 male positive for flu exposure. Patient does not feel well. A she can be discharged home - Lab Data Lab Results 03/02/22 Range/Units 04:13 Influenza Type A RNA Not Detected (Not Detectd) Influenza Type B (PCR) Not Detected (Not Detectd) Disposition Clinical Impression: Viral infection Disposition: HOME SELF-CARE Condition: Good Instructions (If sedation given, give patient instructions): Upper Respiratory Infection (ED) Is patient prescribed a controlled substance at d/c from ED?: No Referrals: Edwardo Harmon MD [Primary Care Provider] - 1-2 days Time of Disposition: 05:00
--- NOTE | 2022-03-02 04:10 | XR ---
EXAMINATION TYPE: XR chest 1V portable DATE OF EXAM: 03/02/2022 COMPARISON: 01/24/2021 HISTORY: Cough TECHNIQUE: Single view FINDINGS: Heart and mediastinum are normal. Lungs are clear. Diaphragm is normal. Bony thorax appears normal. IMPRESSION: Normal chest. No change.
[2022-03-02 05:09] VITALS: BP 127/64; PULSE 71; RESP 15
== END 2022-03-02 05:14 | disposition home or self-care (01) ==
LOC: EC 03:05
DX: B34.9 Viral infection, unspecified (principal); J45.909 Unspecified asthma, uncomplicated; F41.9 Anxiety disorder, unspecified; F31.9 Bipolar disorder, unspecified; F17.290 Nicotine dependence, other tobacco product, uncomplicated; F12.90 Cannabis use, unspecified, uncomplicated
CPT/HCPCS: 71045; 87502; 99285

== ENCOUNTER 2022-06-20 08:53 | Emergency (ER) | payer OTHER ==
--- NOTE | 2022-06-20 09:46 | ED ---
ENT HPI - General Chief complaint: ENT Stated complaint: left ear abscess Time Seen by Provider: 06/20/22 09:27 Source: patient, RN notes reviewed, old records reviewed Mode of arrival: ambulatory Limitations: no limitations - History of Present Illness Initial comments: 31-year-old male presents with pain to left earlobe after trying to squeeze a pimple stating he did get some drainage from it. Woke up today with increased bruising and swelling today. Denies any fevers. Is a daily smoker. History of asthma. Tetanus shot is up-to-date. No history of MRSA. MD complaint: ear pain -: days(s) (2) Location: L ear Severity scale (1-10): 8 Quality: constant Consistency: constant Context- Ear: direct trauma ("pimple" squeezed pus from 2 days ago) - Related Data Home Medications Medication Instructions Recorded Confirmed DULoxetine HCL [Cymbalta] 60 mg PO DIRECTED 01/24/21 06/20/22 Previous Rx's Medication Instructions Recorded Cephalexin [Keflex] 500 mg PO Q6HR 7 Days #28 cap 06/20/22 Allergies Allergy/AdvReac Type Severity Reaction Status Date / Time No Known Allergies Allergy Verified 06/20/22 09:40 Review of Systems ROS Statement: Those systems with pertinent positive or pertinent negative responses have been documented in the HPI. ROS Other: All systems not noted in ROS Statement are negative. Past Medical History Past Medical History: Asthma Additional Past Medical History / Comment(s): Hypoglycemia, back pain, enlarged heart History of Any Multi-Drug Resistant Organisms: None Reported Past Surgical History: No Surgical Hx Reported Additional Past Surgical History / Comment(s): cyst removed from dorsum of left hand. Past Psychological History: Anxiety, Bipolar, Depression Smoking Status: Current every day smoker, Vaper Past Alcohol Use History: None Reported Past Drug Use History: Marijuana General Exam Limitations: no limitations General appearance: alert, in no apparent distress Head exam: Present: atraumatic Eye exam: Present: normal appearance. Absent: scleral icterus, conjunctival injection, periorbital swelling, periorbital tenderness ENT exam: Present: mucous membranes moist, other (Bruising to the posterior left earlobe with minimal erythema. No drainable abscess.) Neck exam: Present: full ROM, lymphadenopathy (Left posterior cervical). Absent: meningismus Respiratory exam: Present: normal lung sounds bilaterally. Absent: respiratory distress, accessory muscle use Cardiovascular Exam: Present: bradycardia GI/Abdominal exam: Present: soft Extremities exam: Present: normal capillary refill Neurological exam: Present: alert, oriented X3 Psychiatric exam: Present: normal affect, normal mood Skin exam: Present: warm, dry, intact, normal color. Absent: cyanosis, diaphoretic, petechiae, pallor Course Vital Signs 06/20/22 06/20/22 09:05 09:54 Temperature 97.5 F L 98.4 F Pulse Rate 55 L 59 L Respiratory 20 18 Rate Blood Pressure 114/64 120/64 O2 Sat by Pulse 97 97 Oximetry Medical Decision Making - Medical Decision Making Erythema and bruising noted to the posterior lobe of the left ear lobe. There is inflammation of the left posterior cervical lymph nodes. No trismus, muffled voice or difficulty swallowing. No evidence of periorbital cellulitis. Cranial nerves are intact. Patient placed on antibiotics. No history of MRSA. Tetanus shot is up-to-date Directed to return to the emergency room with any new or concerning symptoms. Follow up with his primary care doctor this week. Patient is agreeable to this plan of care. Case was discussed with Dr. Mendenhall. Was pt. sent in by a medical professional or institution (, PA, GEOSPATIAL SPECIALIST, urgent care, hospital, or residential...) When possible be specific @ -No Did you speak to anyone other than the patient for history (EMS, parent, family, police, friend...)? What history was obtained from this source @ -No Did you review nursing and triage notes (agree or disagree)? Why? @ -I reviewed and agree with nursing and triage notes Were old charts reviewed (outside hosp., previous admission, EMS record, old EKG, old radiological studies, urgent care reports/EKG's, residential records)? Report findings @ -No old charts were reviewed Differential Diagnosis (chest pain, altered mental status, abdominal pain women, abdominal pain men, vaginal bleeding, weakness, fever, dyspnea, syncope, headache, dizziness, GI bleed, back pain, seizure, CVA, palpatations, mental health, musculoskeletal)? @ -Abscess, cellulitis, zoster, foreign body this is not an all inclusive list EKG interpreted by me (3pts min.). @ -n/a X-rays interpreted by me (1pt min.). @ -None done CT interpreted by me (1pt min.). @ -None done U/S interpreted by me (1pt. min.). @ -None done What testing was considered but not performed or refused? (CT, X-rays, U/S, labs)? Why? @ -None What meds were considered but not given or refused? Why? @ -None Did you discuss the management of the patient with other professionals (professionals i.e. , PA, GEOSPATIAL SPECIALIST, lab, RT, psych nurse, social insurance administrator, district manager postal service, teacher, facilities officer, family independence case manager)? Give summary @ -No Was smoking cessation discussed for >3mins.? @ -No Was critical care preformed (if so, how long)? @ -No Were there social determinants of health that impacted care today? How? (Homelessness, low income, unemployed, alcoholism, drug addiction, transportation, low edu. Level, literacy, decrease access to med. care, detention, rehab)? @ -No Was there de-escalation of care discussed even if they declined (Discuss DNR or withdrawal of care, Hospice)? DNR status @ -No What co-morbidities impacted this encounter? (DM, HTN, Smoking, COPD, CAD, Cancer, CVA, ARF, Chemo, Hep., AIDS, mental health diagnosis, sleep apnea, morbid obesity)? @ -Asthma Was patient admitted / discharged? Hospital course, mention meds given and route, prescriptions, significant lab abnormalities, going to OR and other pertinent info. @ -Discharged Undiagnosed new problem with uncertain prognosis? @ -No Drug Therapy requiring intensive monitoring for toxicity (Heparin, Nitro, Insulin, Cardizem)? @ -No Were any procedures done? @ -No Diagnosis/symptom? @ -Cellulitis Acute, or Chronic, or Acute on Chronic? @ -Acute Uncomplicated (without systemic symptoms) or Complicated (systemic symptoms)? @ -Uncomplicated Side effects of treatment? @ -No Exacerbation, Progression, or Severe Exacerbation? @ -No Poses a threat to life or bodily function? How? (Chest pain, [place], [place], pneumonia, PE, COPD, DKA, ARF, appy, cholecystitis, CVA, Diverticulitis, Homicidal, Suicidal, threat to staff... and all critical care pts) @ -No Disposition Clinical Impression: Cellulitis of earlobe Disposition: HOME SELF-CARE Condition: Good Instructions (If sedation given, give patient instructions): Cellulitis (ED) Additional Instructions: Warm moist compresses 2-[address] a thin layer of bacitracin or Neosporin on site. Take antibiotics as prescribed. Follow-up with the primary care doctor this week. Return to the emergency room with any new or concerning symptoms. Prescriptions: Cephalexin [Keflex] 500 mg PO Q6HR 7 Days #28 cap Is patient prescribed a controlled substance at d/c from ED?: No Referrals: Edwardo Harmon MD [Primary Care Provider] - 1-2 days Time of Disposition: 09:38
[2022-06-20 09:55] VITALS: BP 120/64; PULSE 59; RESP 18; TEMP 98.4
== END 2022-06-20 09:55 | disposition home or self-care (01) ==
LOC: EC 08:53
DX: H60.10 Cellulitis of external ear, unspecified ear (principal); J45.909 Unspecified asthma, uncomplicated; F31.9 Bipolar disorder, unspecified; F41.9 Anxiety disorder, unspecified; F17.290 Nicotine dependence, other tobacco product, uncomplicated; F12.90 Cannabis use, unspecified, uncomplicated
CPT/HCPCS: 99282

== ENCOUNTER 2022-08-17 10:48 | Emergency (ER) | payer OTHER ==
[2022-08-17 11:04] VITALS: RESP 18; TEMP 97.8
[2022-08-17] MEDS ORDERED: SODIUM CHLORIDE 0.9% 1,000 ML IV STA (11:36)
--- NOTE | 2022-08-17 11:50 | XR ---
EXAMINATION TYPE: XR chest 2V DATE OF EXAM: 08/17/2022 COMPARISON: Chest x-ray March 02, 2022 HISTORY: Cough. TECHNIQUE: Frontal and lateral views of the chest are obtained. FINDINGS: There is no focal air space opacity, pleural effusion, or pneumothorax seen. The cardiac silhouette size is within normal limits. The osseous structures are intact. IMPRESSION: No acute pulmonary infiltrate. No significant change from prior.
[2022-08-17 12:18] LABS: ALT 24 U/L (4-49); AST 24 U/L (17-59); African American GFR (CKD) >90 (>60 ml/min/1.73 sqM); Albumin 4.9 g/dL (3.5-5.0); Alkaline Phosphatase 60 U/L (38-126); Anion Gap 11 mmol/L; Blood Urea Nitrogen 10 mg/dL (9-20); Calcium 9.8 mg/dL (8.4-10.2); Carbon Dioxide 24 mmol/L (22-30); Chloride 103 mmol/L (98-107); Glucose 101 mg/dL (74-99); Magnesium 2.1 mg/dL (1.6-2.3); Non-African American GFR(CKD) >90 (>60 ml/min/1.73 sqM); Potassium 4.7 mmol/L (3.5-5.1); Sodium 138 mmol/L (137-145); Total Bilirubin 0.8 mg/dL (0.2-1.3); Total Protein 7.6 g/dL (6.3-8.2)
[2022-08-17 12:23] LABS: Basophils # (A) 0.1 k/uL (0-0.2); Basophils % (A) 1 %; Eosinophils # (A) 0.3 k/uL (0-0.7); Eosinophils % (A) 5 %; HCT 45.5 % (39.0-53.0); HGB 15.6 gm/dL (13.0-17.5); Lymphocytes # (A) 1.6 k/uL (1.0-4.8); Lymphocytes % (A) 32 %; MCH 29.6 pg (25.0-35.0); MCHC 34.2 g/dL (31.0-37.0); MCV 86.6 fL (80.0-100.0); Mean Platelet Volume 7.4; Monocytes # (A) 0.3 k/uL (0-1.0); Monocytes % (A) 6 %; Neutrophils # (A) 2.7 k/uL (1.3-7.7); Neutrophils % (A) 53 %; Platelet Count 295 k/uL (150-450); RBC 5.25 m/uL (4.30-5.90); RDW 13.4 % (11.5-15.5)
[2022-08-17 13:02] LABS: Prothrombin Time 10.8 sec (9.0-12.0)
[2022-08-17 13:18] LABS: Partial Thromboplastin Time 21.3 sec (22.0-30.0)
[2022-08-17] MEDS ORDERED: KETOROLAC 15 MG/ML 1 ML VIAL IVP STA (13:47)
[2022-08-17] MEDS ORDERED: methylPREDNISolone SOD SUCCI 125 MG/2 ML VIAL IV STA (13:48)
--- NOTE | 2022-08-17 13:49 | ED ---
Chest Pain HPI - General Chief Complaint: Chest Pain Stated Complaint: chest pain-3days Time Seen by Provider: 08/17/22 11:05 Source: patient Mode of arrival: ambulatory Limitations: no limitations - History of Present Illness Initial Comments: 31-year-old male with no reported past medical history who presents to the emergency department reporting chest discomfort, shortness of breath and productive cough. States that he has been sick for the past couple of days. Has several members at work that are sick. He has been producing green sputum. Admits to a fever but did take Motrin prior to coming into the emergency department. He has an albuterol inhaler which she was prescribed a year ago when he was sick. He denies a history of asthma. He states that he has been told that he has an enlarged heart however does not follow with the silviculture professor and does not take any medications for it. He denies ripping or tearing cessation of his back. No lower extremity swelling. No history of DVT or PE. No other alleviating, precipitating or modifying factors - Related Data Home Medications Medication Instructions Recorded Confirmed DULoxetine HCL [Cymbalta] 60 mg PO DIRECTED 01/24/21 08/17/22 Previous Rx's Medication Instructions Recorded Albuterol Inhaler [Ventolin Hfa 1 - 2 puff INHALATION Q6H PRN #1 08/17/22 Inhaler] each Azithromycin [Zithromax Z Pack] 1 tab PO DIRECTED #6 tab 08/17/22 Ketorolac [Toradol] 10 mg PO Q8HR #15 tab 08/17/22 Allergies Allergy/AdvReac Type Severity Reaction Status Date / Time No Known Allergies Allergy Verified 08/17/22 12:24 Review of Systems ROS Statement: Those systems with pertinent positive or pertinent negative responses have been documented in the HPI. ROS Other: All systems not noted in ROS Statement are negative. EKG Findings - EKG Comments: EKG Findings:: EKG interpreted by myself and demonstrates sinus rhythm with a rate of 60. FL interval 190. QRS 95. QTC of 364. No acute ST segment elevations or depressions Past Medical History Past Medical History: Asthma Additional Past Medical History / Comment(s): Hypoglycemia, back pain, enlarged heart History of Any Multi-Drug Resistant Organisms: None Reported Past Surgical History: No Surgical Hx Reported Additional Past Surgical History / Comment(s): cyst removed from dorsum of left hand. Past Psychological History: Anxiety, Bipolar, Depression Smoking Status: Current every day smoker, Vaper Past Alcohol Use History: None Reported Past Drug Use History: Marijuana General Exam Limitations: no limitations Course Vital Signs 08/17/22 08/17/22 08/17/22 11:01 11:21 11:25 Temperature 97.8 F Pulse Rate 75 61 82 Respiratory 18 18 Rate Blood Pressure 132/83 125/86 O2 Sat by Pulse 98 Oximetry 08/17/22 08/17/22 08/17/22 11:30 12:00 12:30 Temperature Pulse Rate 105 H 54 L 62 Respiratory Rate Blood Pressure 125/86 127/74 124/84 O2 Sat by Pulse 98 100 Oximetry 08/17/22 08/17/22 08/17/22 13:00 13:30 14:00 Temperature Pulse Rate 59 L 56 L 64 Respiratory Rate Blood Pressure 125/75 114/73 112/66 O2 Sat by Pulse 97 97 96 Oximetry 08/17/22 14:30 Temperature Pulse Rate 66 Respiratory Rate Blood Pressure 108/78 O2 Sat by Pulse 99 Oximetry Chest Pain MDM - MDM Was pt. sent in by a medical professional or institution (, PA, OIL AND GAS SUPERINTENDENT, urgent care, hospital, or half-way...) When possible be specific @ -No Did you speak to anyone other than the patient for history (EMS, parent, family, police, friend...)? What history was obtained from this source @ -No Did you review nursing and triage notes (agree or disagree)? Why? @ -I reviewed and agree with nursing and triage notes Were old charts reviewed (outside hosp., previous admission, EMS record, old EKG, old radiological studies, urgent care reports/EKG's, half-way records)? Report findings @ -No old charts were reviewed Differential Diagnosis (chest pain, altered mental status, abdominal pain women, abdominal pain men, vaginal bleeding, weakness, fever, dyspnea, syncope, headache, dizziness, GI bleed, back pain, seizure, CVA, palpatations, mental health, musculoskeletal)? @ -URI, pneumonia, bronchitis, influenza, covid EKG interpreted by me (3pts min.). @ -yes, NSR X-rays interpreted by me (1pt min.). @ -yes, no acute process CT interpreted by me (1pt min.). @ -None done U/S interpreted by me (1pt. min.). @ -None done What testing was considered but not performed or refused? (CT, X-rays, U/S, labs)? Why? @ -None What meds were considered but not given or refused? Why? @ -None Did you discuss the management of the patient with other professionals (professionals i.e. Dr., PA, OIL AND GAS SUPERINTENDENT, lab, RT, psych nurse, director of social work, teleprinter, teacher, upscale security officer, rn case management)? Give summary @ -No Was smoking cessation discussed for >3mins.? @ -No Was critical care preformed (if so, how long)? @ -No Were there social determinants of health that impacted care today? How? (Homelessness, low income, unemployed, alcoholism, drug addiction, transportation, low edu. Level, literacy, decrease access to med. care, shelter, rehab)? @ -No Was there de-escalation of care discussed even if they declined (Discuss DNR or withdrawal of care, Hospice)? DNR status @ -No What co-morbidities impacted this encounter? (DM, HTN, Smoking, COPD, CAD, Cancer, CVA, ARF, Chemo, Hep., AIDS, mental health diagnosis, sleep apnea, morbid obesity)? @ -None Was patient admitted / discharged? Hospital course, mention meds given and route, prescriptions, significant lab abnormalities, going to OR and other pertinent info. @ -Upon arrival patient is placed into room 11. A thorough history and physical exam was performed. IV access is established and laboratory studies are conducted. Patient was given Toradol for pain and 125 Solu-Medrol as well as a liter bolus normal saline. Laboratory studies are reviewed. Chest x-rays performed. No acute process. Discuss results with the patient. States he feels improved with the medications he was given. Patient will be discharged home with a prescription for Toradol for pleurisy. Additionally patient will be given azithromycin pack for tracheobronchitis. I will also refill his inhaler. Instructed to use 2 puffs every 4 hours and follow up with his doctor. Needs to return for any new or worsening symptoms. Patient was agreeable to this plan and he was discharged home in stable condition Undiagnosed new problem with uncertain prognosis? @ -yes Drug Therapy requiring intensive monitoring for toxicity (Heparin, Nitro, Insulin, Cardizem)? @ -No Were any procedures done? @ -No Diagnosis/symptom? @ -acute chest pain, pleurisy, acute tracheobronchitis Acute, or Chronic, or Acute on Chronic? @ -acute Uncomplicated (without systemic symptoms) or Complicated (systemic symptoms)? @ -complicated Side effects of treatment? @ -No Exacerbation, Progression, or Severe Exacerbation? @ -No Poses a threat to life or bodily function? How? (Chest pain, [place], [place], pneumonia, PE, COPD, DKA, ARF, appy, cholecystitis, CVA, Diverticulitis, Homicidal, Suicidal, threat to staff... and all critical care pts) @ -No Disposition Clinical Impression: Cough, Pleurisy Disposition: HOME SELF-CARE Condition: Stable Instructions (If sedation given, give patient instructions): Upper Respiratory Infection (ED) Additional Instructions: Please use the inhaler or nebulizer treatments every 4 hours. Take the pain medications and antibiotics as directed. Follow up with your doctor and return for any new or worsening symptoms Prescriptions: Ketorolac [Toradol] 10 mg PO Q8HR #15 tab Albuterol Inhaler [Ventolin Hfa Inhaler] 1 - 2 puff INHALATION Q6H PRN #1 each PRN Reason: Cough Azithromycin [Zithromax Z Pack] 1 tab PO DIRECTED #6 tab Is patient prescribed a controlled substance at d/c from ED?: No Referrals: Edwardo Harmon MD [Primary Care Provider] - 1-2 days Time of Disposition: 14:51
[2022-08-17 14:55] VITALS: BP 108/78; PULSE 66
== END 2022-08-17 15:06 | disposition home or self-care (01) ==
LOC: EC 10:48
DX: J20.9 Acute bronchitis, unspecified (principal); J45.909 Unspecified asthma, uncomplicated; F31.9 Bipolar disorder, unspecified; F41.9 Anxiety disorder, unspecified; F17.290 Nicotine dependence, other tobacco product, uncomplicated; F12.90 Cannabis use, unspecified, uncomplicated; Z79.899 Other long term (current) drug therapy
CPT/HCPCS: 36415; 93005; 80053; 83735; 84484; 85025; 85610; 85730; 87636; 71046; 99285; 96374; 96375; 96361; J2930; J1885

== ENCOUNTER 2023-06-26 15:52 | Emergency (ER) | payer OTHER ==
[2023-06-26] MEDS: KETOROLAC 15 MG/ML 1 ML VIAL IVP STA ×2 (16:35→18:36)
[2023-06-26] MEDS: SODIUM CHLORIDE 0.9% 1,000 ML IV STA (16:36)
--- NOTE | 2023-06-26 16:54 | ED ---
Abdominal Pain HPI - General Chief Complaint: Abdominal Pain Stated Complaint: abd pain Time Seen by Provider: 06/26/23 16:19 Source: patient, RN notes reviewed Mode of arrival: ambulatory Limitations: no limitations - History of Present Illness Initial Comments: This is a 32-year-old male who presents to the emergency department for abdominal pain. States that this is primarily right-sided, more so towards the upper abdomen. This has been occurring over the last couple of days. He has associated nausea and diarrhea. States that he had a mildly elevated temperature yesterday that has since resolved. He does have some pain wrapping around into the back. Pain seems to get worse shortly after eating. States he had a hamburger for dinner last night, and this caused him a lot of discomfort. Prior to the last couple days, he has never experienced anything like this in the past. MD Complaint: abdominal pain - Related Data Home Medications Medication Instructions Recorded Confirmed DULoxetine HCL [Cymbalta] 60 mg PO DIRECTED 01/24/21 10/12/22 Previous Rx's Medication Instructions Recorded Ipratropium-Albuterol Nebulize 3 ml INHALATION Q4-6H PRN #90 ml 10/12/22 [Duoneb 0.5 mg-3 mg/3 ml Soln] Promethazine/Dextromethorphan 5 ml PO Q4-6H PRN #473 ml 10/12/22 [Promethazine-Dm Syrup] predniSONE 50 mg PO DAILY 5 Days #5 tab 10/12/22 Dicyclomine [Bentyl] 20 mg PO QID PRN #30 tablet 06/26/23 Ketorolac [Toradol] 10 mg PO Q6HR PRN #15 tab 06/26/23 Allergies Allergy/AdvReac Type Severity Reaction Status Date / Time No Known Allergies Allergy Verified 06/26/23 15:58 Review of Systems ROS Statement: Those systems with pertinent positive or pertinent negative responses have been documented in the HPI. ROS Other: All systems not noted in ROS Statement are negative. Past Medical History Past Medical History: Asthma Additional Past Medical History / Comment(s): Hypoglycemia, back pain, enlarged heart History of Any Multi-Drug Resistant Organisms: None Reported Past Surgical History: No Surgical Hx Reported Additional Past Surgical History / Comment(s): cyst removed from dorsum of left hand. Past Psychological History: Anxiety, Bipolar, Depression Smoking Status: Current every day smoker, Vaper Past Alcohol Use History: None Reported Past Drug Use History: Marijuana General Exam Limitations: no limitations General appearance: alert, in no apparent distress Head exam: Present: atraumatic, normocephalic, normal inspection Respiratory exam: Present: normal lung sounds bilaterally. Absent: respiratory distress, wheezes, rales, rhonchi, stridor Cardiovascular Exam: Present: regular rate, normal rhythm, normal heart sounds. Absent: systolic murmur, diastolic murmur, rubs, gallop, clicks GI/Abdominal exam: Present: soft, tenderness (RUQ), normal bowel sounds. Absent: distended Neurological exam: Present: alert, oriented X3, CN II-XII intact Psychiatric exam: Present: normal affect, normal mood Skin exam: Present: warm, dry, intact, normal color. Absent: rash Course Vital Signs 06/26/23 06/26/23 06/26/23 15:56 18:44 19:39 Temperature 98.0 F 97.3 F L Pulse Rate 75 65 56 L Respiratory 16 16 18 Rate Blood Pressure 139/79 118/73 127/75 O2 Sat by Pulse 98 96 98 Oximetry Medical Decision Making - Medical Decision Making This is a 32 year old male who presents to the emergency department for abdomina l pain. Was pt. sent in by a medical professional or institution? @ -No Did you speak to anyone other than the patient for history? @ -No Did you review nursing and triage notes? @ -Yes, and I agree, it is accurate with regards to the patient's symptoms. Were old charts reviewed? @ -No Differential Diagnosis? @ -Differential Abdominal Pain Men: Appendicitis, cholecystitis, diverticulosis, ischemic bowel, pancreatitis, hepatitis, UTI, gastroenteritis, AAA, incarcerated hernia, bowel obstruction, constipation, inflammatory bowel, hepatitis, peptic ulcer disease, splenic infarction, perforated viscus, testicular torsion, this is not meant to be an all-inclusive list EKG interpreted by me (3pts min.)? @ -Not obtained X-rays interpreted by me (1pt min.)? @ -Not obtained CT interpreted by me (1pt min.)? @ -CT scan of the abdomen and pelvis obtained. My interpretation identifies no evidence of a ureteral calculus. U/S interpreted by me (1pt. min.)? @ -Gallbladder US obtained. My interpretation identifies no evidence of cholelithiasis. What testing was considered but not performed? (CT, X-rays, U/S, labs)? Why? @ -None What meds were considered but not given? Why? @ -None Did you discuss the management of the patient with other professionals? @ -No Did you reconcile home meds? @ -No Was smoking cessation discussed for >3mins.? @ -No Was critical care preformed (if so, how long)? @ -No Were there social determinants of health that impacted care today? How? (Homelessness, low income, unemployed, alcoholism, drug addiction, transportation, low edu. Level, literacy, decrease access to med. care, fpc, rehab)? @ -No Was there de-escalation of care discussed even if they declined? (Discuss DNR or withdrawal of care, Hospice)? @ -No What co-morbidities impacted this encounter? (DM, HTN, Smoking, COPD, CAD, Cancer, CVA, Hep., AIDS, mental health diagnosis, sleep apnea, morbid obesity)? @ -None Was patient admitted / discharged? @ -Discharged. Lab work unremarkable. Gallbladder ultrasound obtained revealing no acute process. Patient did have a small amount of blood in his ur ine, and given the associated flank pain, we proceeded with a CT scan to evaluate for any possibility of a kidney stone. CT scan of the abdomen and pelvis reveals no acute process, including no evidence of a renal calculus or other irregularity. Patient initially treated with IV fluids and Toradol with some improvement in symptoms. He was then given an additional dose of Toradol along with Bentyl, which he felt was beneficial. Advised he discuss the possibility of a HIDA scan with his primary care provider to evaluate gallbladder function given the location of his pain with it being aggravated by foods. Prescription for Toradol and Bentyl provided with dosing instructions reviewed. He is advised to follow a bland low-fat diet for the meantime to reduce the risk of symptom recurrence. Patient discharged home in stable condition. Undiagnosed new problem with uncertain prognosis? @ -None Drug Therapy requiring intensive monitoring for toxicity (Heparin, Nitro, Insulin, Cardizem)? @ -None Were any procedures done? @ -None Diagnosis/symptom? @ -Abdominal pain Acute, or Chronic, or Acute on Chronic? @ -Acute Uncomplicated (without systemic symptoms) or Complicated (systemic symptoms)? @ -Uncomplicated Side effects of treatment? @ -None Exacerbation, Progression, or Severe Exacerbation] @ -Not applicable Poses a threat to life or bodily function? @ -No Return precautions reviewed in depth, the patient is instructed to return to the emergency department with any new, worsening, or concerning symptoms. Patient verbalized understanding. This case was discussed in detail with the attending ED physician, Dr. Vargas. Presentation, findings, and treatment plan discussed in detail as well. - Lab Data Result diagrams: 06/26/23 16:34 06/26/23 16:34 Lab Results 06/26/23 06/26/23 06/26/23 Range/Units 16:34 16:34 16:34 WBC 6.2 (3.8-10.6) k/uL RBC 5.15 (4.30-5.90) m/uL Hgb 15.4 (13.0-17.5) gm/dL Hct 46.5 (39.0-53.0) % MCV 90.3 (80.0-100.0) fL MCH 29.9 (25.0-35.0) pg MCHC 33.1 (31.0-37.0) g/dL RDW 13.1 (11.5-15.5) % Plt Count 297 (150-450) k/uL MPV 7.0 Neutrophils % 56 % Lymphocytes % 27 % Monocytes % 6 % Eosinophils % 10 % Basophils % 1 % Neutrophils # 3.5 (1.3-7.7) k/uL Lymphocytes # 1.7 (1.0-4.8) k/uL Monocytes # 0.3 (0-1.0) k/uL Eosinophils # 0.6 (0-0.7) k/uL Basophils # 0.1 (0-0.2) k/uL Sodium 138 (137-145) mmol/L Potassium 4.4 (3.5-5.1) mmol/L Chloride 105 (98-107) mmol/L Carbon Dioxide 23 (22-30) mmol/L Anion Gap 10 mmol/L BUN 14 (9-20) mg/dL Creatinine 0.78 (0.66-1.25) mg/dL Est GFR (CKD-EPI)AfAm >90 (>60 ml/min/1.73 sqM) Est GFR (CKD-EPI)NonAf >90 (>60 ml/min/1.73 sqM) Glucose 93 (74-99) mg/dL Plasma Lactic Acid Toni (0.7-2.0) mmol/L Calcium 9.6 (8.4-10.2) mg/dL Total Bilirubin 0.7 (0.2-1.3) mg/dL AST 27 (17-59) U/L ALT 32 (4-49) U/L Alkaline Phosphatase 65 (38-126) U/L Total Protein 7.2 (6.3-8.2) g/dL Albumin 4.6 (3.5-5.0) g/dL Amylase 92 (30-110) U/L Lipase 211 (23-300) U/L Urine Color Light Yellow Urine Appearance Clear (Clear) Urine pH 7.0 (5.0-8.0) Ur Specific Vestal 1.024 (1.001-1.035) Urine Protein Negative (Negative) Urine Glucose (UA) Negative (Negative) Urine Ketones Negative (Negative) Urine Blood Trace H (Negative) Urine Nitrite Negative (Negative) Urine Bilirubin Negative (Negative) Urine Urobilinogen <2.0 (<2.0) mg/dL Ur Leukocyte Esterase Negative (Negative) Urine RBC 6 H (0-5) /hpf Urine WBC <1 (0-5) /hpf Ur Squamous Epith Cells <1 (0-4) /hpf Urine Mucus Few H (None) /hpf 06/26/23 Range/Units 16:34 WBC (3.8-10.6) k/uL RBC (4.30-5.90) m/uL Hgb (13.0-17.5) gm/dL Hct (39.0-53.0) % MCV (80.0-100.0) fL MCH (25.0-35.0) pg MCHC (31.0-37.0) g/dL RDW (11.5-15.5) % Plt Count (150-450) k/uL MPV Neutrophils % % Lymphocytes % % Monocytes % % Eosinophils % % Basophils % % Neutrophils # (1.3-7.7) k/uL Lymphocytes # (1.0-4.8) k/uL Monocytes # (0-1.0) k/uL Eosinophils # (0-0.7) k/uL Basophils # (0-0.2) k/uL Sodium (137-145) mmol/L Potassium (3.5-5.1) mmol/L Chloride (98-107) mmol/L Carbon Dioxide (22-30) mmol/L Anion Gap mmol/L BUN (9-20) mg/dL Creatinine (0.66-1.25) mg/dL Est GFR (CKD-EPI)AfAm (>60 ml/min/1.73 sqM) Est GFR (CKD-EPI)NonAf (>60 ml/min/1.73 sqM) Glucose (74-99) mg/dL Plasma Lactic Acid Toni 1.1 (0.7-2.0) mmol/L Calcium (8.4-10.2) mg/dL Total Bilirubin (0.2-1.3) mg/dL AST (17-59) U/L ALT (4-49) U/L Alkaline Phosphatase (38-126) U/L Total Protein (6.3-8.2) g/dL Albumin (3.5-5.0) g/dL Amylase (30-110) U/L Lipase (23-300) U/L Urine Color Urine Appearance (Clear) Urine pH (5.0-8.0) Ur Specific Vestal (1.001-1.035) Urine Protein (Negative) Urine Glucose (UA) (Negative) Urine Ketones (Negative) Urine Blood (Negative) Urine Nitrite (Negative) Urine Bilirubin (Negative) Urine Urobilinogen (<2.0) mg/dL Ur Leukocyte Esterase (Negative) Urine RBC (0-5) /hpf Urine WBC (0-5) /hpf Ur Squamous Epith Cells (0-4) /hpf Urine Mucus (None) /hpf - Radiology Data Radiology results: report reviewed, image reviewed Disposition Clinical Impression: Abdominal pain Disposition: HOME SELF-CARE Instructions (If sedation given, give patient instructions): Abdominal Pain (ED), Biliary Dyskinesia (DC) Additional Instructions: Return to the emergency department with any new, worsening, or concerning symptoms. Take the Toradol with Tylenol as needed for pain relief. If you choose to take the Toradol, do not take any other anti-inflammatories such as ibuprofen, take one or the other. You can take the Bentyl up to 4 times daily as needed for abdominal pain. Try to follow a low-fat and bland diet for the meantime to reduce the risk of symptom recurrence. You may need a HIDA scan to evaluate your gallbladder function. Discuss this with your primary care provider. Follow up with your primary care provider in 1-2 days. Prescriptions: Dicyclomine [Bentyl] 20 mg PO QID PRN #30 tablet PRN Reason: Gi Upset Ketorolac [Toradol] 10 mg PO Q6HR PRN #15 tab PRN Reason: Pain Is patient prescribed a controlled substance at d/c from ED?: No Referrals: Edwardo Harmon MD [Primary Care Provider] - 1-2 days Time of Disposition: 19:28
[2023-06-26 17:09] LABS: Basophils # (A) 0.1 k/uL (0-0.2); Basophils % (A) 1 %; Eosinophils # (A) 0.6 k/uL (0-0.7); Eosinophils % (A) 10 %; HCT 46.5 % (39.0-53.0); HGB 15.4 gm/dL (13.0-17.5); Lymphocytes # (A) 1.7 k/uL (1.0-4.8); Lymphocytes % (A) 27 %; MCH 29.9 pg (25.0-35.0); MCHC 33.1 g/dL (31.0-37.0); MCV 90.3 fL (80.0-100.0); Monocytes # (A) 0.3 k/uL (0-1.0); Monocytes % (A) 6 %; Neutrophils # (A) 3.5 k/uL (1.3-7.7); Neutrophils % (A) 56 %; Platelet Count 297 k/uL (150-450); RBC 5.15 m/uL (4.30-5.90); RDW 13.1 % (11.5-15.5); WBC 6.2 k/uL (3.8-10.6)
[2023-06-26 17:10] LABS: Appearance,Urine Clear (Clear); Bilirubin,Urine Negative (Negative); Blood,Urine Trace (Negative); Color,Urine Light Yellow; Glucose,Urine (UA) Negative (Negative); Ketones,Urine Negative (Negative); Leukocyte Esterase,Urine Negative (Negative); Mucus,Urine Few /hpf; Nitrite,Urine Negative (Negative); Protein,Urine Negative (Negative); RBC,Urine 6 /hpf (0-5); Specific Gravity,Urine 1.024 (1.001-1.035); Squamous Epithelial Cell,Urine <1 /hpf (0-4); Urobilinogen,Urine <2.0 mg/dL (<2.0); WBC,Urine <1 /hpf (0-5)
[2023-06-26 17:21] LABS: ALT 32 U/L (4-49); AST 27 U/L (17-59); African American GFR (CKD) >90 (>60 ml/min/1.73 sqM); Albumin 4.6 g/dL (3.5-5.0); Alkaline Phosphatase 65 U/L (38-126); Amylase 92 U/L (30-110); Anion Gap 10 mmol/L; Blood Urea Nitrogen 14 mg/dL (9-20); Calcium 9.6 mg/dL (8.4-10.2); Carbon Dioxide 23 mmol/L (22-30); Chloride 105 mmol/L (98-107); Glucose 93 mg/dL (74-99); Lipase 211 U/L (23-300); Non-African American GFR(CKD) >90 (>60 ml/min/1.73 sqM); Potassium 4.4 mmol/L (3.5-5.1); Sodium 138 mmol/L (137-145); Total Bilirubin 0.7 mg/dL (0.2-1.3); Total Protein 7.2 g/dL (6.3-8.2)
--- NOTE | 2023-06-26 17:38 | US ---
EXAMINATION TYPE: US gallbladder DATE OF EXAM: 06/26/2023 COMPARISON: 04/14/2021 CLINICAL INDICATION: Male, 32 years old with history of RUQ pain; RUQ pain for a few days TECHNIQUE: Multiple sonographic images of the right upper quadrant are obtained. 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
--- NOTE | 2023-06-26 18:22 | CT ---
EXAMINATION TYPE: CT abdomen pelvis wo con CT DLP: 675 mGycm, Automated exposure control for dose reduction was used. DATE OF EXAM: 06/26/2023 6:16 PM COMPARISON: CT abdomen pelvis most recent from 04/14/2021. CLINICAL INDICATION:Male, 32 years old with history of Right flank pain, hematuria; Right flank pain with hematuria TECHNIQUE: Axial CT abdomen pelvis wo con;Sagittal and coronal reformats were created on a separate workstation. Contrast used: mL of , (none if empty) Oral contrast used: without Oral Contrast (none if empty) FINDINGS: LOWER CHEST: Unremarkable ABDOMEN LIVER: Unremarkable GALLBLADDER AND BILE DUCTS: Unremarkable. PANCREAS: Unremarkable. SPLEEN: Unremarkable. ADRENAL GLANDS: Unremarkable. KIDNEYS AND URETERS: No evidence of hydronephrosis or renal calculus. The ureters are unremarkable. PELVIS BLADDER: Unremarkable REPRODUCTIVE: Unremarkable. ABDOMEN & PELVIS STOMACH AND BOWEL: No evidence of bowel obstruction. The appendix is within normal limits for size th ere may be appendicoliths within the lumen near the tip series 201 image 101. PERITONEUM/RETROPERITONEUM: No evidence of pneumoperitoneum or free fluid. VASCULATURE: No evidence of aortic aneurysm. MUSCULOSKELETAL: No acute osseous abnormalities LYMPH NODES: No gross evidence for lymphadenopathy. SOFT TISSUE/ABDOMINAL WALL: Fat-containing umbilical hernia. IMPRESSION: No evidence for acute process. No obstructive uropathy or renal calculus visualized. The appendix is normal.
[2023-06-26] MEDS: DICYCLOMINE 10 MG/ML 2 ML AMP IM STA (18:38)
[2023-06-26] MEDS: ACET/COD 300 MG/30 MG STARTER PACK 6 TAB BTL PO STA (19:38)
[2023-06-26] MEDS: ONDANSETRON 4 MG ODT STARTER PACK 2 TAB BTL PO STA (19:39)
[2023-06-26 19:47] VITALS: BP 127/75; PULSE 56; RESP 18; TEMP 97.3
== END 2023-06-26 19:43 | disposition home or self-care (01) ==
LOC: EC 15:52
DX: R10.11 Right upper quadrant pain (principal); F17.290 Nicotine dependence, other tobacco product, uncomplicated; F12.90 Cannabis use, unspecified, uncomplicated
CPT/HCPCS: 36415; 80053; 82150; 83605; 83690; 85025; 81001; 76705; 74176; 96374; 99285; 96376; 96361; 96372; J0500; J1885; S0119; 99284